=== PATIENT | female | born 1945 | race Caucasian/White ===

== ENCOUNTER → 2016-12-25 | Outpatient (CLI) | payer MEDICARE, OTHER ==
--- NOTE | 2016-12-25 08:13 | CT ---
EXAMINATION TYPE: CT sinus wo con DATE OF EXAM: 12/25/2016 COMPARISON: 06/10/2010 HISTORY: Headaches CT DLP: 599.8 mGycm CONTRAST: None The paranasal sinuses are examined in the axial plane at 2 mm thick sections. Reconstructed images i n the coronal plane were obtained. There is dental amalgam scatter artifact Minimal mucosal thickening or retention cyst is within the inferior right maxillary sinus. Partial se ptations are within the inferior maxillary sinuses bilaterally. Uncinectomies been performed on the r ight. The ethmoid air cells are clear. The sphenoid sinuses are clear. The frontal sinuses are wolfgang ar. The septum is evaluated. There is septal deviation to the left. The ostiomeatal units are patent. There is a left lolita bullosa. This exam is compared to 05/29/2010. On mucosal thickening within the right maxillary sinus appears st able. There is resolution of the previous ethmoid callosal thickening. Postsurgical changes are stabl e. IMPRESSIONS: 1. Minimal stable mucosal thickening within the inferior right maxillary sinus 2. Stable Postsurgical changes.
== END | disposition home or self-care (01) ==
LOC: RADCTMAIN 07:12
PROVIDERS: ATTEND Otolaryngology
DX: J34.89 Other specified disorders of nose and nasal sinuses (principal); R51 Headache; Z98.890 Other specified postprocedural states
CPT/HCPCS: 70486

== ENCOUNTER → 2017-10-14 | Outpatient (CLI) | payer MEDICARE, OTHER ==
[2017-10-13 14:33] VITALS: BMI 24.5
[2017-10-14 12:39] VITALS: BP 145/89; PULSE 59; RESP 16
--- NOTE | 2017-10-14 12:55 | P.HPIM ---
History of Present Illness H&P Date: 10/14/17 Chief Complaint: low back + LLE pain This is a 72-year-old patient referred by Dr. Kraus for chronic pain in low back with radiation to LLE. Patient has been taking only OTC medications for pain with some relief. Patient previously had lumbar RFA > 4 years ago but pain has begun to return. Patient denies adverse drug effects from medications. Patient also denies new-onset weakness, bowel/bladder incontinence , or any other signs or symptoms of cauda equina syndrome. There are no signs of acute intoxication, and no indications of medication diversion or overuse. Patient notes that pain worsens significantly with standing, walking, bending, and twisting and improves with sitting, heat and medication. Patient has used several types of medications for pain, including NSAIDS, OPIOIDS, TRAMADOL. Patient HAS NOT had surgery. Patient HAS had injections previously as noted above. Patient HAS NOT had physical therapy recently. In addition to above, 13-point review of systems is also negative for chest pain , shortness of breath, changes in vision, changes in hearing, new onset weakness , abdominal pain, diarrhea, extreme fatigue, malaise, fever, skin changes, homicidal or suicidal ideation, or bowel or bladder incontinence. Vital Signs: Reviewed in EMR Gen: WDWN, AAOx3, NAD HEENT: NCAT, EOMI, hearing grossly normal Pulm: resp unlabored Abd: soft, NT, ND Neck: supple, trachea midline ROM in flexion lumbar spine: reduced ROM in extension lumbar spine: reduced Lumbar paravertebral tenderness: + Facet loading: + bilateral, L > R SI joint tenderness: neg Thomas's test: + L > R Straight leg raise: neg Past Medical History Past Medical History: Hypertension Additional Past Medical History / Comment(s): STATES TAKING DOXAZOSIN BECAUSE SHE DOES NOT EMPTY HER BLADDER, HX OF UTI'S, MACULAR DEGENERATION LEFT EYE- RECEIVES INJECTIONS., LOWER BACK LEFT HIP AND LEFT LEG PAIN. , FREQUENT CONSTIPATION. History of Any Multi-Drug Resistant Organisms: None Reported Past Surgical History: Heart Catheterization, Hysterectomy Additional Past Surgical History / Comment(s): LEFT BUNIONECTOMY, LEFT HEEL SPUR., HEART CATH (? 15 YRS AGO)., PAIN CLINIC PROCEDURES. Past Anesthesia/Blood Transfusion Reactions: No Reported Reaction Past Psychological History: No Psychological Hx Reported Smoking Status: Never smoker Past Alcohol Use History: None Reported Past Drug Use History: None Reported - Past Family History Brother(s) Family Medical History: Cancer Additional Family Medical History / Comment(s): BONE CANCER Medications and Allergies Home Medications Medication Instructions Recorded Confirmed Type Aspirin [Adult Low Dose Aspirin EC] 81 mg PO DAILY 10/13/17 10/14/17 History Atenolol [Tenormin] 25 mg PO HS 10/13/17 10/14/17 History Cholecalciferol (Vitamin D3) 2,000 unit PO BID 10/13/17 10/14/17 History [Vitamin D3] Cranberry Fruit Extract [Cranberry] 500 mg PO BID 10/13/17 10/14/17 History Doxazosin [Cardura] 2 mg PO DAILY 10/13/17 10/14/17 History Ibuprofen [Motrin Ib] 400 mg PO DAILY PRN 10/13/17 10/14/17 History Naproxen Sodium [Aleve] 440 mg PO DAILY PRN 10/13/17 10/14/17 History Simvastatin [Zocor] 20 mg PO HS 10/13/17 10/14/17 History Vit C/E/Zn/Coppr/Lutein/Zeaxan 1 each PO BID 10/13/17 10/14/17 History [Preservision Areds 2 Softgel] Allergies Allergy/AdvReac Type Severity Reaction Status Date / Time cyclobenzaprine Allergy Unknown Rash/Hives Verified 10/14/17 12:25 [From Flexeril] Physical Exam Vitals: Vital Signs Pulse Resp BP 10/14/17 12:26 59 L 16 145/89 Results Comments: MRI lumbar spine demonstrates a new small left paracentral disc protrusion indenting the thecal sac at T12-L1 and L1-L2. There is a disc bulge asymmetric to the left at L2-L3 with progressing facet and ligamentum flavum hypertrophy. At the L4-L5 level there is a disc bulge with a new superimposed right foraminal disc protrusion. There is also progressing moderate right and mild left facet hypertrophy. There is also moderate facet hypertrophy at the L5-S1 level. Assessment and Plan (1) Spondylosis of lumbar region without myelopathy or radiculopathy Current Visit: Yes Status: Chronic Code(s): M47.816 - SPONDYLOSIS W/O MYELOPATHY OR RADICULOPATHY, LUMBAR REGION SNOMED Code(s): 75068794 (2) Chronic pain syndrome Current Visit: Yes Status: Chronic Code(s): G89.4 - CHRONIC PAIN SYNDROME SNOMED Code(s): 960497895 (3) Lumbar disc herniation Current Visit: Yes Status: Chronic Code(s): M51.26 - OTHER INTERVERTEBRAL DISC DISPLACEMENT, LUMBAR REGION SNOMED Code(s): 714197036 (4) Lumbar radiculitis Current Visit: Yes Status: Chronic Code(s): M54.16 - RADICULOPATHY, LUMBAR REGION SNOMED Code(s): 457385842 Plan: 1. Explanation: Opioid and psychological risk scores were reviewed. Diagnoses , prognoses, and multiple treatment options including but not limited to physical therapy, interventional therapies, adjuvant medical therapies, narcotic medication therapies, and surgery were discussed with the patient and all questions were answered to the patient's satisfaction. 2. Opioid agreement: no opioids prescribed today 3. Counseling: The patient was counseled extensively on BODY MASS INDEX, EXERCISE. Specifically, the patient was instructed regarding the importance of weight control, and exercise in the context of both chronic pain and overall health. 4. Procedures: left lumbar MBB #1 in series 5. Consultations: none 6. Investigations: none 7. Medications: none prescribed 8. Morphine equivalents per day prescribed: zero 9. Disposition: f/u for procedure as scheduled PQRS measures: 1-Patient's medications are documented in the chart. 2-Tobacco use is negative 3-Patient has not had a pneumococcal vaccine. 4-Advanced care planning discussed, patient unable to give. 5-Opioid contract NOT signed with the patient. 6-Pain positive, follow-up visit or procedure scheduled 7-Patient's blood pressure measured and documented, and patient will follow up with the primary care due to hypertension. 8-Patient's weight was measured, and body mass index BELOW the normal limits, and counseling was done. Patient instructed to follow up with PCP. 9-Patient WAS NOT identified as an unhealthy alcohol user. Time with Patient: Greater than 30
== END | disposition home or self-care (01) ==
LOC: PNWHC3 12:16
PROVIDERS: ATTEND Anesthesiology
DX: G89.4 Chronic pain syndrome (principal); M51.16 Intervertebral disc disorders with radiculopathy, lumbar region; I10 Essential (primary) hypertension; Z88.8 Allergy status to other drugs, medicaments and biological substances; Z79.899 Other long term (current) drug therapy; Z79.82 Long term (current) use of aspirin; Z79.1 Long term (current) use of non-steroidal anti-inflammatories (NSAID)
CPT/HCPCS: 99211

== ENCOUNTER 2017-10-26 05:51 | Day surgery (SDC) | payer MEDICARE, OTHER ==
[2017-10-26] MEDS ORDERED: LACTATED RINGERS 1,000 ML IV SCH (06:57)
[2017-10-26 07:05] VITALS: RESP 18; TEMP 98
[2017-10-26] MEDS ORDERED: IV FLUID CONTINUATION 1,000 ML IV ONE (07:33)
[2017-10-26 07:59] VITALS: BP 162/77; PULSE 65
--- NOTE | 2017-10-26 08:16 | P.PCN ---
Date of Procedure: 10/26/17 Surgeon: Darien Seaman Pathology: none sent Condition: stable Disposition: PACU Description of Procedure: PREOPERATIVE DIAGNOSIS: Lumbar spondylosis without myelopathy and facet arthropathy. POSTOPERATIVE DIAGNOSIS: Lumbar spondylosis without myelopathy and facet arthropathy. PROCEDURE DESCRIPTION: Patient presents for LEFT side only L3-L4, L4-L5 and L5- S1 diagnostic medial branch blocks under fluoroscopic guidance. The procedure is performed using fluoroscopic guidance during needle placement to assure proper position and maximize safety. ANESTHESIA: Local with 1% lidocaine; conscious sedation EBL: Minimal PROCEDURE INDICATION: Patient with lumbar facet arthropathy signs and symptoms, here for diagnostic medial branch block #1. Pt does not take any blood thinning medications. PROCEDURE DESCRIPTION: The patient was seen and identified in the preoperative area. Risks, benefits, complications, and alternatives were discussed with the patient (including but not limited to incomplete pain relief, bleeding, infection, nerve damage, and allergies to medications), the patient agreed to proceed with the procedure and signed the consent after all questions were answered. Patient was taken to the OR and time out was completed to verify proper patient, position, laterality of pain, and allergies. Pt was placed in the prone position and a pillow was placed under the abdomen to reduce lumbar lordosis. The lumbosacral area was prepped and draped in the usual sterile fashion. Using oblique fluoroscopy, the eye of the "Alexys dog" of left L4 vertebral body , which corresponds to the path of the medial branch originating from the level above, which is L3 in this case, was identified. Subsequently, a 22-gauge 3.5- inch spinal needle was inserted under fluoroscopic guidance toward the eye of the "Alexys dog" of the left L4 vertebral body, corresponding to the junction of the superior articular process and the transverse process of the pedicle of the same level. After needle tip confirmation on lateral view and after negative aspiration for CSF and blood and without paresthesias, 1 mL of a 3 ml solution of 0.5% preservative-free bupivacaine and 40 mg Kenalog was injected. Subsequently the needle was withdrawn intact and the same procedure was repeated for the left L4 and left L5 medial branches which together with right L3 medial branch correspond to the sensory innervation of the left L3-L4, L4-L5 , and L5-S1 facet joints. Needle was withdrawn intact after each injection. At the end of the procedure, the skin was cleansed and bandages were applied. COMPLICATIONS: None. DISPOSITION/PLAN: The patient taken to the recovery area after the procedure in a stable condition for observation. Patient was reexamined prior to discharge and there were no issues. Patient was discharged home, accompanied by an adult, after meeting discharged criteria. Discharge instructions were give to the patient by the staff. Patient was specifically instructed not to drive today and to rest for the rest of the day. Patient will schedule repeat left sided LMBB at next visit.
--- NOTE | 2017-10-26 09:14 | FL ---
EXAMINATION TYPE: FL guided pain mgmt statistic DATE OF EXAM: 10/26/2017 HISTORY: Flouroscopy time 6 seconds of fluoroscopy provided. IMPRESSION: 1. Fluoroscopy time.
== END 2017-10-26 08:14 | disposition home or self-care (01) ==
LOC: ORPAIN 05:51
PROVIDERS: ATTEND Anesthesiology
DX: G89.4 Chronic pain syndrome (principal); M47.816 Spondylosis without myelopathy or radiculopathy, lumbar region; M51.16 Intervertebral disc disorders with radiculopathy, lumbar region; I10 Essential (primary) hypertension; H35.30 Unspecified macular degeneration; Z79.82 Long term (current) use of aspirin; Z79.899 Other long term (current) drug therapy; Z88.8 Allergy status to other drugs, medicaments and biological substances; Z87.440 Personal history of urinary (tract) infections
CPT/HCPCS: 64493; 64494; 64495; J2250; J3301; J3010

== ENCOUNTER 2017-11-11 05:41 | Day surgery (SDC) | payer MEDICARE, OTHER ==
[2017-11-05 08:41] VITALS: BMI 24.5
[2017-11-11] MEDS ORDERED: LIDOCAINE 1% 20 ML VIAL (10MG/ML) FOR IV START INTRADERMA ONE (06:40)
[2017-11-11 06:47] VITALS: TEMP 97.9
[2017-11-11] MEDS ORDERED: LACTATED RINGERS 1,000 ML IV ONE (06:47)
[2017-11-11] MEDS ORDERED: LACTATED RINGERS 1,000 ML IV SCH (07:00)
--- NOTE | 2017-11-11 07:17 | P.PCN ---
Date of Procedure: 11/11/17 Surgeon: Ivan Rush Description of Procedure: PREOPERATIVE DIAGNOSIS : Lumbar spondylosis with Facet Arthropathy without myelopathy POSTOPERATIVE DIAGNOSIS: same PROCEDURE: Diagnostic lumbar medial branch block with fluoroscopy at left L4, left L5, left sacral ala ANESTHESIA: Local anesthetic; 2 mg of midazolam as limb Surgeon: Ivan Rush MD PROCEDURE INDICATION: This is a very pleasant 72-year-old woman who presents today for repeat of lumbar medial branch nerve block. She reports that she received very good relief from her previous procedure. She has had these injections done in the past and they have been helpful for her. She has also had a rhizotomy performed in the past and this was helpful. I discussed with her the potential of repeat rhizotomy in the future. PROCEDURE DESCRIPTION: the patient was seen and identified in the preop holding area , risks and benefits and possible complications of the procedure and alternative were discussed with the patient, and the patient agreed to proceed with the procedure and signed the consent. An IV was started and vital signs monitored during the procedure and fluoroscopy was used to maximize the benefit and accuracy of the needle placement, and sedation was given to decrease patient anxiety, patient was taken to the procedure room and placed in prone position vital signs monitored in the back prepped. Under strict sterile technique using a right oblique fluoroscopy ,the junction of the transverse process and the superior articulating process of the [] L3- 4 , L4- 5, and L5-S1 vertebra which corresponding to the fluoroscopy image of the eye of the Alexys dog on the block side for the medial branches and subsequently , after local infiltration of skin and subcutaneous tissues with lidocaine 1% one mL at each level ,then one 25-gauge Quincke-type needles was placed at the junction of the base of the transverse process and the superior articular process at the appropriate level, and the needle was advanced until the periosteum contacted, needle placement confirmed with AP oblique and lateral view and after appropriate needle placement confirmed, and after negative aspiration, 0.5 mL of Marcaine 0.5% mixed with 40 mg depomedrol in divided doses was injected at each level and the needle subsequently removed []. At the end of the procedure and the needles removed and a bandage applied after the skin was cleaned the cleaning solution patient taken to recovery room in stable condition and monitors in the recovery room for 20-30 minutes and discharged home in stable condition after discharge criteria met and patient will follow up with the pain clinic in 2-4 weeks to evaluate for radiofrequency ablation. EBL: Minimal COMPLICATION: None.
[2017-11-11] MEDS ORDERED: IV FLUID CONTINUATION 1,000 ML IV ONE (07:23)
[2017-11-11 07:27] VITALS: RESP 16
[2017-11-11 07:36] VITALS: BP 156/87; PULSE 58
--- NOTE | 2017-11-11 10:29 | FL ---
Fluoroscopy HISTORY: Pain 2 seconds fluoroscopy time supplied to the referring clinician. 1 intraoperative C-arm images docume nt the procedure. See dictated report from anesthesia.
== END 2017-11-11 07:52 | disposition home or self-care (01) ==
LOC: ORPAIN 05:41
PROVIDERS: ATTEND Pain Medicine Pain Medicine
DX: M47.816 Spondylosis without myelopathy or radiculopathy, lumbar region (principal); G89.4 Chronic pain syndrome; I10 Essential (primary) hypertension; R33.9 Retention of urine, unspecified; H35.30 Unspecified macular degeneration; Z88.8 Allergy status to other drugs, medicaments and biological substances; Z79.82 Long term (current) use of aspirin; Z79.899 Other long term (current) drug therapy; Z80.8 Family history of malignant neoplasm of other organs or systems
CPT/HCPCS: 64493; 64494; 64495; J2250; J1030

== ENCOUNTER → 2017-12-01 | Outpatient (CLI) | payer MEDICARE, OTHER ==
--- NOTE | 2017-12-01 16:01 | P.PN ---
Progress Note - Text Progress Note Date: 12/01/17 Chief Complaint: low back + LLE pain This is a 72-year-old patient referred by Dr. Kraus for chronic pain in low back with radiation to LLE. Patient is status post LEFT lumbar medial branch blocks with relief greater than 70% for greater than 24 hours. She has had lumbar radiofrequency ablations in the past on her left side, states that she's had at least 3 years of relief with each one. Patient is interested in getting a radio frequency ablation of her lumbar spine L3-L4, L4-L5, L5-S1 levels. I discussed with her the risks and benefits of lumbar radio frequency ablation. Patient wishes to proceed in that manner she had good relief from the medial branch blocks. Patient still on [id number] medication for pain. Patient also denies new-onset weakness, bowel/bladder incontinence, or any other signs or symptoms of cauda equina syndrome. There are no signs of acute intoxication, and no indications of medication diversion or overuse. Patient notes that pain worsens significantly with standing, walking, bending, and twisting and improves with sitting, heat and medication. Patient has used several types of medications for pain, including NSAIDS, OPIOIDS, TRAMADOL. Patient HAS NOT had surgery. Patient HAS had injections previously as noted above. Patient HAS NOT had physical therapy recently. In addition to above, 13-point review of systems is also negative for chest pain , shortness of breath, changes in vision, changes in hearing, new onset weakness , abdominal pain, diarrhea, extreme fatigue, malaise, fever, skin changes, homicidal or suicidal ideation, or bowel or bladder incontinence. Vital Signs: Reviewed in EMR Gen: WDWN, AAOx3, NAD HEENT: NCAT, EOMI, hearing grossly normal Pulm: resp unlabored Abd: soft, NT, ND Neck: supple, trachea midline ROM in flexion lumbar spine: reduced ROM in extension lumbar spine: reduced Lumbar paravertebral tenderness: + Facet loading: + bilateral, L > R SI joint tenderness: neg Thomas's test: + L > R Straight leg raise: neg Past Medical History Past Medical History: Hypertension Additional Past Medical History / Comment(s): STATES TAKING DOXAZOSIN BECAUSE SHE DOES NOT EMPTY HER BLADDER, HX OF UTI'S, MACULAR DEGENERATION LEFT EYE- RECEIVES INJECTIONS., LOWER BACK LEFT HIP AND LEFT LEG PAIN. , FREQUENT CONSTIPATION. History of Any Multi-Drug Resistant Organisms: None Reported Past Surgical History: Heart Catheterization, Hysterectomy Additional Past Surgical History / Comment(s): LEFT BUNIONECTOMY, LEFT HEEL SPUR., HEART CATH (? 15 YRS AGO)., PAIN CLINIC PROCEDURES. Past Anesthesia/Blood Transfusion Reactions: No Reported Reaction Past Psychological History: No Psychological Hx Reported Smoking Status: Never smoker Past Alcohol Use History: None Reported Past Drug Use History: None Reported - Past Family History Brother(s) Family Medical History: Cancer Additional Family Medical History / Comment(s): BONE CANCER Medications and Allergies Home Medications Medication Instructions Type Aspirin [Adult Low Dose Aspirin EC] 81 mg PO DAILY History Atenolol [Tenormin] 25 mg PO HS History Cholecalciferol (Vitamin D3) 2,000 unit PO BID History [Vitamin D3] Cranberry Fruit Extract [Cranberry] 500 mg PO BID History Doxazosin [Cardura] 2 mg PO DAILY History Ibuprofen [Motrin Ib] 400 mg PO DAILY PRN History Naproxen Sodium [Aleve] 440 mg PO DAILY PRN History Simvastatin [Zocor] 20 mg PO HS History Vit C/E/Zn/Coppr/Lutein/Zeaxan 1 each PO BID History [Preservision Areds 2 Softgel] Allergies Allergy/AdvReac Type Severity Reaction Status Date / Time cyclobenzaprine Allergy Unknown Rash/Hives Verified [From Flexeril] Physical Exam Vitals: Vital Signs Pulse Resp BP 10/14/17 12:26 59 L 16 145/89 Results Comments: MRI lumbar spine demonstrates a new small left paracentral disc protrusion indenting the thecal sac at T12-L1 and L1-L2. There is a disc bulge asymmetric to the left at L2-L3 with progressing facet and ligamentum flavum hypertrophy. At the L4-L5 level there is a disc bulge with a new superimposed right foraminal disc protrusion. There is also progressing moderate right and mild left facet hypertrophy. There is also moderate facet hypertrophy at the L5-S1 level. Assessment and Plan (1) Spondylosis of lumbar region without myelopathy or radiculopathy Current Visit: Yes Status: Chronic Code(s): M47.816 - SPONDYLOSIS W/O MYELOPATHY OR RADICULOPATHY, LUMBAR REGION SNOMED Code(s): 23110782 (2) Chronic pain syndrome Current Visit: Yes Status: Chronic Code(s): G89.4 - CHRONIC PAIN SYNDROME SNOMED Code(s): 753481601 (3) Lumbar disc herniation Current Visit: Yes Status: Chronic Code(s): M51.26 - OTHER INTERVERTEBRAL DISC DISPLACEMENT, LUMBAR REGION SNOMED Code(s): 535928820 (4) Lumbar radiculitis Current Visit: Yes Status: Chronic Code(s): M54.16 - RADICULOPATHY, LUMBAR REGION SNOMED Code(s): 065655443 Plan: 1. Explanation: Opioid and psychological risk scores were reviewed. Diagnoses , prognoses, and multiple treatment options including but not limited to physical therapy, interventional therapies, adjuvant medical therapies, narcotic medication therapies, and surgery were discussed with the patient and all questions were answered to the patient's satisfaction. 2. Opioid agreement: no opioids prescribed today 3. Counseling: The patient was counseled extensively on BODY MASS INDEX, EXERCISE. Specifically, the patient was instructed regarding the importance of weight control, and exercise in the context of both chronic pain and overall health. 4. Procedures: Lumbar radiofrequency ablation 5. Consultations: none 6. Investigations: none 7. Medications: none prescribed 8. Morphine equivalents per day prescribed: zero 9. Disposition: Schedule for LEFT lumbar radiofrequency ablation L3 L4, L4-L5 , L5-S1 levels PQRS measures: 1-Patient's medications are documented in the chart. 2-Tobacco use is negative 3-Patient has not had a pneumococcal vaccine. 4-Advanced care planning discussed, patient unable to give. 5-Opioid contract NOT signed with the patient. 6-Pain positive, follow-up visit or procedure scheduled 7-Patient's blood pressure measured and documented, and patient will follow up with the primary care due to hypertension. 8-Patient's weight was measured, and body mass index BELOW the normal limits, and counseling was done. Patient instructed to follow up with PCP. 9-Patient WAS NOT identified as an unhealthy alcohol user. Time with Patient: Greater than 30
[2017-12-01 16:02] VITALS: BP 145/96; PULSE 78; RESP 18
== END | disposition home or self-care (01) ==
LOC: PNWHC3 14:14
PROVIDERS: ATTEND Anesthesiology
DX: G89.4 Chronic pain syndrome (principal); M51.16 Intervertebral disc disorders with radiculopathy, lumbar region; M47.26 Other spondylosis with radiculopathy, lumbar region; I10 Essential (primary) hypertension; Z79.82 Long term (current) use of aspirin; Z79.1 Long term (current) use of non-steroidal anti-inflammatories (NSAID); Z79.899 Other long term (current) drug therapy; Z88.8 Allergy status to other drugs, medicaments and biological substances
CPT/HCPCS: 99211

== ENCOUNTER 2017-12-20 06:34 | Day surgery (SDC) | payer MEDICARE, OTHER ==
[2017-12-14 09:56] VITALS: BMI 24.5
[2017-12-20 07:15] VITALS: RESP 16; TEMP 98.1
[2017-12-20] MEDS ORDERED: LIDOCAINE 1% 20 ML VIAL (10MG/ML) FOR IV START INTRADERMA ONE (07:17)
[2017-12-20] MEDS ORDERED: LACTATED RINGERS 1,000 ML IV ONE (07:17)
--- NOTE | 2017-12-20 07:38 | P.PCN ---
Date of Procedure: 12/20/17 Description of Procedure: Description of Procedure: Procedure(s) Performed: PREOPERATIVE DIAGNOSIS: 1. Lumbar Spondylosis with Facet Arthropathy without myelopathy. 2-. Lumber degenerative disc disease POSTOPERATIVE DIAGNOSIS: 1. Lumbar Spondylosis with Facet Arthropathy without myelopathy. 2-. Lumber degenerative disc disease PROCEDURES: Left Radiofrequency thermocoagulation, L3-L4, L4-L5, and L5-S1 medial branch, with fluoroscopic guidance SURGEON: Jimmy Marquez M.D. ANESTHESIA: Moderate sedation with intravenous versed 2 mg and fentaneyl 100 mcg and local infiltration with lidocaine 1% 4 ml EBL: Minimal PROCEDURE INDICATION: The patient with low back pain secondary to lumbar facet arthropathy who had more than 50% relief of her pain with previous diagnostic lumbar medial branch block with bupivacaine. PROCEDURE DESCRIPTION / TECHNIQUE: The patient was seen and identified in the preoperative area. Risks, benefits, complications, including but not limited to risk of infection ,bleeding , allergic reactions to the medications and no complete pain releife , and alternatives were discussed with the patient, the patient agreed to proceed with the procedure and signed the consent. IV was started. Vital signs remained stable throughout the procedure. Patient was taken to the OR and time out was completed. The patient was placed in the prone position on the procedure table. The lumber area was prepped and draped in the usual sterile fashion. . Vital signs were closely monitored during the procedure .IV sedation was used during the procedure to decrease patients anxiety. Using AP and then oblique fluoroscopy, the ``eye of the Alexys dog corresponding to the connection between the superior and transverse articular processes of Left L3-L4, L4-L5, and L5-S1 were identified, marked, and localized with 1% lidocaine. Subsequently, a 18 [id number] radiofrequency cannula with a 10-mm active tip was advanced guided by fluoroscopy to each of the ``eyes of the Alexys dog at left L3-L4, L4-L5, and L5-S1. Each site then underwent sensory testing at 50 Hz and 0 to 1 volt and motor testing at 2.5 Hz and 0 to 3 volt with local stimulation, but no radicular symptoms down the legs. Thereafter the left L3-L4, L4-L5, and L5-S1 sites underwent radiofrequency thermocoagulation at 80 degrees celsius for 90 seconds after injecting 0.5 ml of PF lidocaine 1%. then After the thermocoagulation done , 1 ml of the block solution containing Kenalog 40 mg and 4 ml of marain 0.5% was injected at the Left L3-4 , L4-5 , and L5-S1, levels after negative aspiration of CSF and blood and with no paresthesias. Cannulas were retracted while injecting lidocaine 1% until the needle is out.. At the end of the procedure, the skin was cleansed and bandages were applied. COMPLICATIONS: No acute complications. DISPOSITION / PLANS: The patient was placed in a supine position and transferred to the recovery area in a stable condition for observation and was discharged from the recovery room after meeting discharge criteria. Home discharge instructions given to the patient by the staff. The patient was reexamined prior to discharge. Patient will return to clinic in 4-8 weeks.
[2017-12-20] MEDS ORDERED: LACTATED RINGERS 1,000 ML IV SCH (07:45)
[2017-12-20] MEDS ORDERED: IV FLUID CONTINUATION 1,000 ML IV ONE ×2 (08:41)
--- NOTE | 2017-12-20 08:47 | FL ---
EXAMINATION TYPE: FL guided pain mgmt statistic DATE OF EXAM: 12/20/2017 HISTORY: Flouroscopy time 38 seconds of fluoroscopy provided. IMPRESSION: 1. Fluoroscopy time.
[2017-12-20 08:56] VITALS: BP 160/91; PULSE 65
== END 2017-12-20 09:18 | disposition home or self-care (01) ==
LOC: ORPAIN 06:34
PROVIDERS: ATTEND Anesthesiology
DX: G89.4 Chronic pain syndrome (principal); M47.816 Spondylosis without myelopathy or radiculopathy, lumbar region; M51.16 Intervertebral disc disorders with radiculopathy, lumbar region; I10 Essential (primary) hypertension; N32.89 Other specified disorders of bladder; H35.30 Unspecified macular degeneration; Z79.82 Long term (current) use of aspirin; Z79.899 Other long term (current) drug therapy; Z09 Encounter for follow-up examination after completed treatment for conditions other than malignant neoplasm; Z88.8 Allergy status to other drugs, medicaments and biological substances
CPT/HCPCS: 64635; 64636; J2250; J3301; J3010; 99152

== ENCOUNTER 2018-02-04 07:53 | Day surgery (SDC) | payer MEDICARE, OTHER ==
[2018-02-01 16:01] VITALS: BMI 24.1
[~2018-02-04 07:53] MED LIST: LACTATED RINGERS 1,000 ML IV SCH; LIDOCAINE 1% 20 ML VIAL (10MG/ML) FOR IV START INTRADERMA PRN
[2018-02-04 08:59] VITALS: TEMP 98
[2018-02-04 09:14] LABS: Glucose,Whole Blood 78 mg/dL (75-99)
[2018-02-04] MEDS ORDERED: PROPOFOL 10 MG/ML 20 ML VIAL IV ONE (09:26)
--- NOTE | 2018-02-04 09:52 | P.PCN ---
Date of Procedure: 02/04/18 Procedure(s) Performed: BRIEF HISTORY: Patient is a 72-year-old pleasant 8 female, scheduled for an elective colonoscopy as a part of OR screening for colorectal neoplasia. OCEDURE PERFORMED: Colonoscopy with snare polypectomy PREOPERATIVE DIAGNOSIS: screening for colon cancer IV sedation per Anesthesia. PROCEDURE: After informed consent was obtained, the patient, was brought into the endoscopy unit. IV sedation was administered by Anesthesia under continuous monitoring. Digital rectal examination was normal. Initially the Olympus CF- 160 flexible video colonoscope was then inserted in the rectum, gradually advanced into the cecum without any difficulty. Careful examination was performed as the scope was gradually being withdrawn. Ileocecal valve and the appendiceal orifice were visualized and appeared normal. Prep was excellent. was a 1 cm flat cecal polyp that was removed by snare polypectomy. Mucosa of the cecum, ascending colon, transverse colon, descending colon, sigmoid colon, and rectum appeared normal. Sigmoid Diverticulosis Seen. Retroflexion was performed in the rectum and no lesions were seen. The patient tolerated the procedure well. IMPRESSION: 1 cm flat cecal polyp status post polypectomy Scattered sigmoid diverticulosis RECOMMENDATIONS: Findings of this examination were discussed with the patient as well as a family. She was advised to follow with the biopsy results. If the biopsy shows adenoma she can have a repeat colonoscopy in 5 years
[2018-02-04 09:55] VITALS: RESP 16
[2018-02-04 10:26] VITALS: BP 100/68; PULSE 60
== END 2018-02-04 10:44 | disposition home or self-care (01) ==
LOC: ORWHC2ENDO 07:53
PROVIDERS: ATTEND Internal Medicine Gastroenterology
DX: Z12.11 Encounter for screening for malignant neoplasm of colon (principal); K63.5 Polyp of colon; K57.30 Diverticulosis of large intestine without perforation or abscess without bleeding; Z86.010 Personal history of colon polyps; I10 Essential (primary) hypertension; E78.5 Hyperlipidemia, unspecified; N39.0 Urinary tract infection, site not specified; H35.30 Unspecified macular degeneration; Z79.82 Long term (current) use of aspirin; Z79.52 Long term (current) use of systemic steroids; Z79.1 Long term (current) use of non-steroidal anti-inflammatories (NSAID); Z79.899 Other long term (current) drug therapy; Z88.8 Allergy status to other drugs, medicaments and biological substances; Z79.2 Long term (current) use of antibiotics
CPT/HCPCS: 88305; 45385; J2704

== ENCOUNTER → 2018-02-10 | Outpatient (CLI) | payer MEDICARE, OTHER ==
[2018-02-10 13:11] VITALS: BP 128/84; PULSE 77; RESP 16
--- NOTE | 2018-02-10 13:26 | P.PN ---
Subjective Progress Note Date: 02/10/18 Principal diagnosis: Lumbar spondylosis without myelopathy This is a pleasant 72-year-old female with history of chronic lower back pain due to lumbar spondylosis without myelopathy. The patient had lumbar bilateral medial branch RFA recently and her pain is tolerable at this point. Previously she had prolonged period of pain relief after her RFA. The patient denies any bowel or bladder dysfunction or any weakness in the lower extremities she also denies any numbness or tingling in the lower extremities. By physical exam she is alert oriented 3 in no apparent distress She has normal and symmetrical muscle strength in the lower extremities. At this point we will see the patient on an as-needed basis. Objective - Vital Signs Vital signs: Vital Signs Temp Pulse 77 02/10/18 13:05 Resp 16 02/10/18 13:05 BP 128/84 02/10/18 13:05 Pulse Ox 99 02/10/18 13:05 Intake & Output 02/09/18 02/10/18 02/10/18 18:59 06:59 18:59 Weight 59.874 kg
== END | disposition home or self-care (01) ==
LOC: PNWHC3 12:54
PROVIDERS: ATTEND Anesthesiology
DX: G89.29 Other chronic pain (principal); M47.816 Spondylosis without myelopathy or radiculopathy, lumbar region; Z98.890 Other specified postprocedural states
CPT/HCPCS: 99211

== ENCOUNTER → 2018-02-25 | Outpatient (CLI) | payer MEDICARE, OTHER ==
--- NOTE | 2018-02-28 09:11 | MM ---
Reason for exam: screening (asymptomatic). Last mammogram was performed 2 years ago. History: Patient history of other cancer. Physical Findings: A clinical breast exam by your physician is recommended on an annual basis and results should be correlated with mammographic findings. MG 3D Screening Mammo W/Cad Bilateral CC and MLO view(s) were taken. Prior study comparison: February 17, 2016, bilateral MG 3d screening mammo w/cad. February 27, 2015, bilateral MG 3d work up w/cad IAN. The breast tissue is heterogeneously dense. This may lower the sensitivity of mammography. There is no discrete abnormality. No significant changes when compared with prior studies. ASSESSMENT: Negative, BI-RAD 1 RECOMMENDATION: Routine screening mammogram of both breasts in 1 year.
== END ==
LOC: RADMAMWWP 11:57
PROVIDERS: ATTEND Obstetrics & Gynecology
DX: Z12.31 Encounter for screening mammogram for malignant neoplasm of breast (principal)
CPT/HCPCS: 77063; 77067

== ENCOUNTER → 2018-06-03 | Outpatient (CLI) | payer MEDICARE, OTHER ==
--- NOTE | 2018-06-06 07:39 | BD ---
EXAMINATION TYPE: Axial Bone Density DATE OF EXAM: 06/03/2018 COMPARISON: 02.17.2016 CLINICAL HISTORY: 72 YR OLD FEMALE...ICD-10 CODE: M89.9 KNOWN OSTEOPENIA Height: 59.5 Weight: 138 FRAX RISK QUESTIONS: NOTHING TO RISK FACTORS HISTORY OF: Postmenopausal woman: YES IN HER 50s Lost more than 2 inches in height since high school: YES Frequent falls: ELDERLY MEDICATIONS: Additional Medications: BP MEDS, VIT D3, STATIN FOR CHOLESTEROL Additional History: HYPERTENSION, LOW VIT D, CHOLESTEROL EXAM MEASUREMENTS: Bone mineral densitometry was performed using the Koemei System. Bone mineral density as measured about the Lumbar spine is: ----- L1-L4(G/cm2): 1.185 T Score Values are as follows: ----- L1: -0.4 ----- L2: -0.5 ----- L3: 0.7 ----- L4: 0.2 ----- L1-L4: 0.0 Bone mineral density has: Increased 5.9% SINCE 02.17.2016 STUDY Bone mineral density about the R hip (g/cm2): 0.802 Bone mineral density about the L hip (g/cm2): 0.860 T Score values are as follows: -----R Neck: -1.9 -----L Neck: -1.8 -----R Total: -1.6 -----L Total: -1.2 Bone mineral density has: Decreased -4.9%SINCE FRAX%s: THERE IS A 12.8% CHANCE FOR A MAJOR OSTEOPOROTIC FX AND A 3.2% FOR HIP.....PROBABILITY OF FX IN 10 YRS TIME IMPRESSION: Osteopenia about the bilateral femora. NOTE: T-SCORE=SD OF THE YOUNG ADULT MEAN.
== END | disposition home or self-care (01) ==
LOC: RADBDWWP 12:09
PROVIDERS: ATTEND Obstetrics & Gynecology
DX: M85.851 Other specified disorders of bone density and structure, right thigh (principal); M85.852 Other specified disorders of bone density and structure, left thigh
CPT/HCPCS: 77080

== ENCOUNTER → 2019-01-17 | Outpatient (CLI) | payer MEDICARE, OTHER ==
--- NOTE | 2019-01-17 13:12 | US ---
EXAMINATION TYPE: US gallbladder DATE OF EXAM: 01/17/2019 COMPARISON: NONE CLINICAL HISTORY: R10.13 Epigastric pain,K80.20 Gallstones. RUQ pain x 2 months EXAM MEASUREMENTS: Liver Length: 13.9 cm Gallbladder Wall: 0.2 cm CBD: 0.3 cm Right Kidney: 9.1 x 3.9 x 4.9 cm Pancreas: visualized portions wnl, limited by overlying midline bowel gas Liver: mildly heterogeneous, 2.1 x 2.0 x 1.9cm hyperechoic lesion right lobe Gallbladder: wnl Evidence for sonographic Edwards's sign: no CBD: wnl Right Kidney: Prominent renal pelvis may be related to extrarenal pelvis There is no ascites. IMPRESSION: Limited exam. Hyperechoic focus within the right lobe of the liver is indeterminate. Diff erential diagnostic considerations include hemangioma, consider CT with dynamic contrast administrati on versus MRI for better evaluation.
== END | disposition home or self-care (01) ==
LOC: RADUSMAIN 08:59
PROVIDERS: ATTEND Surgery Plastic and Reconstructive Surgery
DX: R10.13 Epigastric pain (principal); K80.20 Calculus of gallbladder without cholecystitis without obstruction
CPT/HCPCS: 76705

== ENCOUNTER 2019-01-18 10:10 | Day surgery (SDC) | payer MEDICARE, OTHER ==
[2019-01-16 15:23] VITALS: BMI 25.1
--- NOTE | 2019-01-18 07:55 | P.GSHP ---
History of Present Illness H&P Date: 01/18/19 CHIEF COMPLAINT: GERD HISTORY OF PRESENT ILLNESS: The patient is a 73-year-old female who presents reports gastroesophageal reflux disease. Upper endoscopy was offered for further evaluation and management. PAST MEDICAL HISTORY: Please see list. PAST SURGICAL HISTORY: Please see list. MEDICATIONS: Please see list. ALLERGIES: Please see list. SOCIAL HISTORY: No illicit drug use FAMILY HISTORY: No reports of Crohn disease or ulcerative colitis. REVIEW OF ORGAN SYSTEMS: CONSTITUTIONAL: No reports of fevers or chills. GI: Denies any blood in stools or constipation. PHYSICAL EXAM: VITAL SIGNS: Stable GENERAL: Well-developed and pleasant in no acute distress. HEENT: No scleral icterus. Extraocular movements grossly intact. Moist buccal mucosa. NECK: Supple without lymphadenopathy. CHEST: Unlabored respirations. Equal bilateral excursions. CARDIOVASCULAR: Regular rate and rhythm. Distal 2+ pulses. ABDOMEN: Soft, nondistended. MUSCULOSKELETAL: No clubbing, cyanosis, or edema. ASSESSMENT: 1. Gastroesophageal reflux disease PLAN: 1. Recommend proceeding with an upper endoscopy Past Medical History Past Medical History: Eye Disorder, GERD/Reflux, Hyperlipidemia, Hypertension Additional Past Medical History / Comment(s): STATES TAKING DOXAZOSIN BECAUSE SHE DOES NOT EMPTY HER BLADDER, HX OF UTI'S, MACULAR DEGENERATION LEFT EYE- RECEIVES INJECTIONS., LOWER BACK LEFT HIP AND LEFT LEG PAIN. , FREQUENT CONSTIPATION. History of Any Multi-Drug Resistant Organisms: None Reported Past Surgical History: Heart Catheterization, Hysterectomy, Orthopedic Surgery Additional Past Surgical History / Comment(s): LEFT BUNIONECTOMY, LEFT HEEL SPUR., HEART CATH (? 15 YRS AGO)., PAIN CLINIC PROCEDURES., COLONOSCOPY, EGD Past Anesthesia/Blood Transfusion Reactions: No Reported Reaction Smoking Status: Never smoker - Past Family History Brother(s) Family Medical History: Cancer Additional Family Medical History / Comment(s): BONE CANCER Medications and Allergies Home Medications Medication Instructions Recorded Confirmed Type Aspirin [Adult Low Dose Aspirin EC] 81 mg PO DAILY 10/13/17 01/16/19 History Atenolol [Tenormin] 25 mg PO HS 10/13/17 01/16/19 History Cholecalciferol (Vitamin D3) 2,000 unit PO BID 10/13/17 01/16/19 History [Vitamin D3] Doxazosin [Cardura] 2 mg PO DAILY 10/13/17 01/16/19 History Simvastatin [Zocor] 20 mg PO HS 10/13/17 01/16/19 History Furosemide [Lasix] 20 mg PO DAILY 01/16/19 01/16/19 History Lisinopril [Prinivil] 10 mg PO HS 01/16/19 01/16/19 History Montelukast [Singulair] 10 mg PO DAILY 01/16/19 01/16/19 History Vit C/E/Zn/Coppr/Lutein/Zeaxan 1 each PO BID 01/16/19 01/16/19 History [Preservision Areds 2 Softgel] Allergies Allergy/AdvReac Type Severity Reaction Status Date / Time cyclobenzaprine Allergy Unknown Rash/Hives Verified 01/16/19 15:08 [From Flexeril]
[2019-01-18 10:56] VITALS: TEMP 97.9
[2019-01-18] MEDS ORDERED: GLYCOPYRROLATE 0.2 MG/ML 2 ML VIAL ONE (11:27)
[2019-01-18] MEDS ORDERED: PROPOFOL 10 MG/ML 20 ML VIAL IV ONE (11:27)
[2019-01-18] MEDS ORDERED: LIDOCAINE 1% INJ 10MG/ML (20 ML MDV) ONE (11:27)
--- NOTE | 2019-01-18 11:46 | P.PCN ---
Date of Procedure: 01/18/19 Description of Procedure: PREOPERATIVE DIAGNOSIS: Gastroesophageal reflux disease. Hiatal hernia POSTOPERATIVE DIAGNOSIS: Gastritis. Gastroesophageal reflux disease. Diaphragmatic hiatal hernia, paraesophageal type III OPERATION: Esophagogastroduodenoscopy with biopsies along antrum. SURGEON: Mary Mead MD ANESTHESIA: MAC. INDICATIONS: The patient is a 73-year-old female who presents with a history of reflux disease. Benefits and risks of the procedure were described. Informed consent was obtained. DESCRIPTION: The patient was brought into the endoscopy suite and laid in the left lateral decubitus position. An Olympus gastroscope was passed along the posterior oropharynx down to the distal esophagus where the squamocolumnar junction was encountered at 27 cm from the incisors. The stomach was entered and no bile reflux was found. Additional findings are listed below. Biopsies with cold forceps were obtained of the antrum. The first through third portion of the duodenum was examined and unremarkable. Retroflexion of the scope confirmed Hill grade 4 lower esophageal valve. The squamocolumnar junction demonstrated LA grade A erosive esophagitis. The stomach was desufflated. The patient tolerated the procedure well. FINDINGS: Squamocolumnar junction 27 cm from the incisors. Diaphragmatic hiatus at 37 cm. Hiatal hernia, 10 cm Hill grade 4 lower esophageal valve. LA grade A erosive esophagitis. No active duodenitis. Chronic gastritis without recent bleed RECOMMENDATIONS: Upper endoscopy as needed. Plan - Discharge Summary Discharge Rx Participant: No New Discharge Prescriptions: No Action Atenolol [Tenormin] 25 mg PO HS Simvastatin [Zocor] 20 mg PO HS Doxazosin [Cardura] 2 mg PO DAILY Cholecalciferol (Vitamin D3) [Vitamin D3] 2,000 unit PO BID Aspirin [Adult Low Dose Aspirin EC] 81 mg PO DAILY Montelukast [Singulair] 10 mg PO DAILY Lisinopril [Prinivil] 10 mg PO HS Furosemide [Lasix] 20 mg PO DAILY Vit C/E/Zn/Coppr/Lutein/Zeaxan [Preservision Areds 2 Softgel] 1 each PO BID Discharge Medication List Aspirin [Adult Low Dose Aspirin EC] 81 mg PO DAILY 10/13/17 [History] Atenolol [Tenormin] 25 mg PO HS 10/13/17 [History] Cholecalciferol (Vitamin D3) [Vitamin D3] 2,000 unit PO BID 10/13/17 [History] Doxazosin [Cardura] 2 mg PO DAILY 10/13/17 [History] Simvastatin [Zocor] 20 mg PO HS 10/13/17 [History] Furosemide [Lasix] 20 mg PO DAILY 01/16/19 [History] Lisinopril [Prinivil] 10 mg PO HS 01/16/19 [History] Montelukast [Singulair] 10 mg PO DAILY 01/16/19 [History] Vit C/E/Zn/Coppr/Lutein/Zeaxan [Preservision Areds 2 Softgel] 1 each PO BID 01/16/19 [History]
[2019-01-18 11:50] VITALS: RESP 16
[2019-01-18 12:20] VITALS: BP 154/89; PULSE 58
== END 2019-01-18 12:49 | disposition home or self-care (01) ==
LOC: ORWHC2ENDO 10:10
PROVIDERS: ATTEND Surgery Plastic and Reconstructive Surgery
DX: K29.50 Unspecified chronic gastritis without bleeding (principal); K22.10 Ulcer of esophagus without bleeding; K44.9 Diaphragmatic hernia without obstruction or gangrene; K21.9 Gastro-esophageal reflux disease without esophagitis; E78.5 Hyperlipidemia, unspecified; I10 Essential (primary) hypertension; H35.30 Unspecified macular degeneration; Z90.710 Acquired absence of both cervix and uterus; Z80.8 Family history of malignant neoplasm of other organs or systems; Z79.82 Long term (current) use of aspirin; Z79.899 Other long term (current) drug therapy; Z88.8 Allergy status to other drugs, medicaments and biological substances
CPT/HCPCS: 88305; 43239; J2001; J2704

== ENCOUNTER → 2019-01-20 | Outpatient (CLI) | payer MEDICARE, OTHER ==
[2019-01-20 13:44] LABS: African American GFR (CKD) >90 (>60 ml/min/1.73 sqM); Blood Urea Nitrogen 13 mg/dL (7-17)
--- NOTE | 2019-01-20 15:22 | CT ---
EXAMINATION TYPE: CT abdomen pelvis w con DATE OF EXAM: 01/20/2019 HISTORY: hiatal hernia and epigastric pain. CT DLP: 450.8mGycm Automated Exposure Control for Dose Reduction was Utilized. CONTRAST: CT scan of the abdomen and pelvis is performed with oral and with IV Contrast, patient injected with 100 mL of Isovue 300. COMPARISON: Gallbladder ultrasound 3 days earlier. FINDINGS: LUNG BASES: Anterior right basilar scarring just above diaphragm.. LIVER/GB: Central 1.7 cm hypodense lesion liver axial image 14 with peripheral nodular enhancement an d centripetal filling consistent with small hemangioma.. PANCREAS: No significant abnormality is seen. SPLEEN: No significant abnormality is seen. ADRENALS: No significant abnormality is seen. KIDNEYS: Symmetric cortical medullary uptake and excretion from both kidneys without hydronephrosis s een bilaterally. Mild concentric wall thickening of bladder is thought present. BOWEL: There is fairly moderate to borderline large sized hiatal hernia with abnormal twisting. Contrast reaches the level of the mid transverse colon. No suspicious small or large bowel dilatation . Mild wall thickening in the left and sigmoid colon is present products of poor distention extending into rectum. Mild colitis felt less likely but not excluded. UTERUS/ADNEXA: Uterus is surgically absent. LYMPH NODES: No greater than 1cm abdominal or pelvic lymph nodes are appreciated. OSSEOUS STRUCTURES: Moderate to severe disc space narrowing L5-S1 level with vacuum disc phenomenon. [id number] disc space narrowing with vacuum disc phenomenon L4-L5 level. Moderate disc space na rrowing with vacuum disc phenomenon L2-L3 level. OTHER: Mild calcified plaque of the aorta extends into branch vessels. IMPRESSION: Confirmation of moderate to borderline large size presumed fixed hiatal hernia with abnor mal twisting. Possible acute cystitis, correlate clinically. Confirmation of liver lesion consistent with benign hemangioma noted.
== END | disposition home or self-care (01) ==
LOC: RADCTMAIN 13:05
PROVIDERS: ATTEND Surgery Plastic and Reconstructive Surgery
DX: K76.9 Liver disease, unspecified (principal); K80.20 Calculus of gallbladder without cholecystitis without obstruction; R91.8 Other nonspecific abnormal finding of lung field; J98.59 Other diseases of mediastinum, not elsewhere classified; R10.13 Epigastric pain
CPT/HCPCS: 82565; 84520; 74177; 36415; Q9967

== ENCOUNTER → 2019-03-14 | Outpatient (CLI) | payer MEDICARE, OTHER ==
--- NOTE | 2019-03-16 09:58 | MM ---
Reason for exam: screening (asymptomatic). Last mammogram was performed 1 year and 1 month ago. History: Patient is postmenopausal and history of other cancer. Physical Findings: A clinical breast exam by your physician is recommended on an annual basis and results should be correlated with mammographic findings. MG 3D Screening Mammo W/Cad Bilateral CC and MLO view(s) were taken. Prior study comparison: February 25, 2018, bilateral MG 3d screening mammo w/cad. February 17, 2016, bilateral MG 3d screening mammo w/cad. The breast tissue is heterogeneously dense. This may lower the sensitivity of mammography. There is no discrete abnormality. No significant changes when compared with prior studies. ASSESSMENT: Negative, BI-RAD 1 RECOMMENDATION: Routine screening mammogram of both breasts in 1 year.
== END | disposition home or self-care (01) ==
LOC: RADMAMWWP 09:47
PROVIDERS: ATTEND Obstetrics & Gynecology
DX: Z12.31 Encounter for screening mammogram for malignant neoplasm of breast (principal)
CPT/HCPCS: 77063; 77067

== ENCOUNTER → 2019-04-11 | Outpatient (CLI) | payer MEDICARE, OTHER ==
[2019-04-11 12:15] LABS: HCT 35.8 % (34.0-46.0); MCH 32.3 pg (25.0-35.0); MCHC 33.6 g/dL (31.0-37.0); MCV 96.1 fL (80.0-100.0); Mean Platelet Volume 6.6; Platelet Count 189 k/uL (150-450); RBC 3.73 m/uL (3.80-5.40); RDW 12.2 % (11.5-15.5); WBC 5.9 k/uL (3.8-10.6)
== END | disposition home or self-care (01) ==
LOC: LABPAT 11:00
PROVIDERS: ATTEND Anesthesiology
DX: Z01.812 Encounter for preprocedural laboratory examination (principal); K44.9 Diaphragmatic hernia without obstruction or gangrene; Z79.899 Other long term (current) drug therapy
CPT/HCPCS: 36415; 84132; 85027

== ENCOUNTER 2019-04-14 12:39 | Inpatient (IN) | payer MEDICARE, OTHER ==
--- NOTE | 2019-04-13 21:25 | P.GSHP ---
History of Present Illness H&P Date: 04/14/19 CHIEF COMPLAINT: Paraesophageal hiatal hernia with gastroesophageal reflux disease. HISTORY OF PRESENT ILLNESS: The patient is a 73-year-old female who presents with paraesophageal hiatal hernia. She has completed an esophageal manometry including upper endoscopy workup. Now she presents for surgical intervention. PAST MEDICAL HISTORY: Please see list. PAST SURGICAL HISTORY: Please see list. MEDICATIONS: Please see list. ALLERGIES: Please see list. SOCIAL HISTORY: No illicit drug use FAMILY HISTORY: No reports of Crohn disease or ulcerative colitis. REVIEW OF ORGAN SYSTEMS: CONSTITUTIONAL: No reports of fevers or chills. GI: Denies any blood in stools or constipation. PHYSICAL EXAM: VITAL SIGNS: Stable GENERAL: Well-developed pleasant and in no acute distress. HEENT: No scleral icterus. Extraocular movements grossly intact. Moist buccal mucosa. NECK: Supple without lymphadenopathy. CHEST: Unlabored respirations. Equal bilateral excursions. CARDIOVASCULAR: Regular rate and rhythm. Distal 2+ pulses. ABDOMEN: Soft, nondistended. No peritoneal signs. MUSCULOSKELETAL: No clubbing, cyanosis, or edema. SKIN: Well-perfused. Good skin turgor. MANOMETRY: Shows no evidence of achalasia or scleroderma. ASSESSMENT: 1. Diaphragmatic paraesophageal hiatal hernia with severe gastroesophageal reflux disease. 2. Ineffective esophageal motility. 3. Short and weak lower esophageal sphincter. PLAN: 1. Recommend proceeding with a robotic paraesophageal hiatal hernia with possible mesh. 2. Benefits and risks of surgical intervention was discussed including possibility of open technique. 3. Inpatient hospitalization recommended of 2 nights 4. DVT prophylaxis. 5. Antibiotic prophylaxis. 6. She has also completed a very low caloric high-protein diet to address underlying hepatomegaly. Past Medical History Past Medical History: Eye Disorder, GERD/Reflux, Hyperlipidemia, Hypertension Additional Past Medical History / Comment(s): Hx STATES "DOES NOT EMPTY HER BLADDER", UTI'S, MACULAR DEGENERATION LEFT EYE- RECEIVES INJECTIONS., LOWER BACK LEFT HIP AND LEFT LEG PAIN. , FREQUENT CONSTIPATION,steroid injection Mar 2019 History of Any Multi-Drug Resistant Organisms: None Reported Past Surgical History: Heart Catheterization, Hysterectomy, Orthopedic Surgery Additional Past Surgical History / Comment(s): LEFT BUNIONECTOMY, LEFT HEEL SPUR., HEART CATH (? 15 YRS AGO)., PAIN CLINIC PROCEDURES., COLONOSCOPY, EGD,partial hyst Past Anesthesia/Blood Transfusion Reactions: No Reported Reaction Additional Past Anesthesia/Blood Transfusion Reaction / Comment(s): no hx blood transfusion Smoking Status: Never smoker - Past Family History Brother(s) Family Medical History: Cancer Additional Family Medical History / Comment(s): BONE CANCER Medications and Allergies Home Medications Medication Instructions Recorded Confirmed Type Aspirin [Adult Low Dose Aspirin EC] 81 mg PO DAILY 10/13/17 04/11/19 History Atenolol [Tenormin] 25 mg PO HS 10/13/17 04/11/19 History Cholecalciferol (Vitamin D3) 2,000 unit PO BID 10/13/17 04/11/19 History [Vitamin D3] Doxazosin [Cardura] 2 mg PO QAM 10/13/17 04/11/19 History Simvastatin [Zocor] 20 mg PO HS 10/13/17 04/11/19 History Furosemide [Lasix] 20 mg PO DAILY 01/16/19 04/11/19 History Lisinopril [Prinivil] 10 mg PO QAM 01/16/19 04/11/19 History Montelukast [Singulair] 10 mg PO DAILY PRN 01/16/19 04/11/19 History Vit C/E/Zn/Coppr/Lutein/Zeaxan 1 each PO BID 01/16/19 04/11/19 History [Preservision Areds 2 Softgel] Cranberry Fruit Extract [Cranberry] 500 mg PO DAILY 04/11/19 04/11/19 History Docusate [Colace] 100 mg PO BID 04/11/19 04/11/19 History Magnesium Hydroxide [Milk of 400 mg PO DAILY PRN 04/11/19 04/11/19 History Magnesia] Allergies Allergy/AdvReac Type Severity Reaction Status Date / Time cyclobenzaprine Allergy Unknown Rash/Hives Verified 04/11/19 08:47 [From Flexeril]
[~2019-04-14 12:39] MED LIST changes: +ACETAMINOPHEN TAB 500 MG TAB PO STA; +DEXAMETHASONE SOD PHOSPHATE 10 MG/ML 1 ML VIAL IV ONE; +GABAPENTIN 300 MG CAP PO STA; +HEPARIN SODIUM,PORCINE 5,000 UNIT/ML 1 ML VIAL SQ ONE; +HYDROmorphone 0.5 MG/0.5 ML SYRINGE IVP PRN; +MIDAZOLAM 2 MG/2 ML VIAL IV PRN; +ONDANSETRON 4 MG/2 ML VIAL IVP ONE; +SCOPOLAMINE 1.5MG/72HR PATCH TRANSDERM ONE
[2019-04-14 13:20] LABS: Glucose,Whole Blood 118 mg/dL (75-99)
[2019-04-14] MEDS ORDERED: fentaNYL (PF) 50 MCG/ML 2 ML AMP ONE (16:21)
[2019-04-14] MEDS ORDERED: SUCCINYLCHOLINE CHLORIDE 100 MG/5 ML SYR IV ONE (16:21)
[2019-04-14] MEDS ORDERED: ROCURONIUM BROMIDE 10 MG/ML 10 ML VIAL IV ONE (16:21)
[2019-04-14] MEDS ORDERED: GLYCOPYRROLATE 0.2 MG/ML 2 ML VIAL ONE (16:21)
[2019-04-14] MEDS ORDERED: PHENYLEPHRINE-0.9% NACL SYG 1 MG/10 ML SYRINGE ONE (16:21)
[2019-04-14] MEDS ORDERED: PROPOFOL 10 MG/ML 20 ML VIAL IV ONE (16:21)
[2019-04-14] MEDS ORDERED: LIDOCAINE 1% INJ 10MG/ML (20 ML MDV) ONE (16:21)
[2019-04-14] MEDS ORDERED: NEOSTIGMINE 1 MG/ML 10 ML VIAL ONE (16:21)
[2019-04-14] MEDS ORDERED: BUPIVACAIN-EPI 0.25%-1:200,000 30 ML VIAL SQ ONE (16:50)
[2019-04-14] MEDS ORDERED: LACTATED RINGERS 1,000 ML IV ONE (17:30)
[2019-04-14] MEDS ORDERED: HYDROmorphone 0.5 MG/0.5 ML SYRINGE IVP PRN (18:34)
[2019-04-14] MEDS ORDERED: diphenhydrAMINE 50 MG/ML 1 ML VIAL IVP PRN (18:34)
[2019-04-14] MEDS ORDERED: NALOXONE 0.4 MG/ML 1 ML VIAL IV PRN (18:34)
[2019-04-14] MEDS ORDERED: 0.9% NACL WITH KCL 20 MEQ/L 1,000 ML IV SCH (18:45)
--- NOTE | 2019-04-14 19:03 | P.OP ---
Date of Procedure: 04/14/19 Description of Procedure: SURGEON: ALEX HORTON MD PREOPERATIVE DIAGNOSES: 1. Symptomatic paraesophageal diaphragmatic hiatal hernia, type III 2. Gastroesophageal reflux disease 3. Ineffective esophageal dysmotility 4. Chronic obstructive pulmonary disease 5. Dysphagia 6. Hypertensive heart disease 7. Congestive heart failure, diastolic dysfunction 8. Macular degeneration 9. Chronic constipation POSTOPERATIVE DIAGNOSES: 1. Symptomatic paraesophageal diaphragmatic hiatal hernia, type III, large 2. Gastroesophageal reflux disease 3. Ineffective esophageal dysmotility 4. Chronic obstructive pulmonary disease 5. Dysphagia 6. Hypertensive heart disease 7. Congestive heart failure, diastolic dysfunction 8. Macular degeneration 9. Chronic constipation OPERATION: 1. Robotic-assisted da Cathleen Xi laparoscopic repair of LARGE incarcerated paraesophageal hiatal hernia, 9 x 6 cm, with [place] Biopatch A 8 x 8 cm. 2. Intraoperative esophagogastroduodenoscopy 3. Placement of esophageal bougie 48-Hungarian bougie to address pre-existing esophageal dysmotility ANESTHESIA: General with local anesthetic. ESTIMATED BLOOD LOSS: 10 mL SPECIMENS REMOVED: 1. Mediastinal and distal esophageal mass 5 cm COMPLICATIONS: None. Condition: stable Disposition: floor FINDINGS: 1. Midline intra-thoracic LARGE incarcerated paraesophageal hiatal hernia 9 x 6 cm, over 60% of stomach 2. Intraoperative upper endoscopy confirms complete closure of hiatal hernia from Hill grade 4 to Hill grade 1 3. Lower esophageal sphincter at 34 cm from the incisors INDICATIONS: The patient is a 73year-old female who presents with regurgitation, gastroesophageal reflux disease poorly controlled despite medications, and a symptomatic diaphragmatic hiatal hernia. Preoperative workup including upper endoscopy demonstrated a Hill grade 4 lower esophageal valve. She completed an esophageal manometry. Given the severity of symptoms, she had elected for surgical intervention. Benefits and risks including bleeding, infection, recurrence, dysphagia, injury to the lung, need for further surgery was described at length. Informed consent was obtained. DESCRIPTION: The patient was brought into the operating room and placed in supine position. Preoperatively she had received heparin subcutaneously for DVT prophylaxis. After general induction, the abdomen was prepped and draped in standard sterile fashion. The patient had previously voided prior to coming to the operating room. Ioban draping was placed along the abdomen. A timeout protocol was confirmed with the surgical team, for which the patient's name, procedure to be performed including DVT prophylaxis with bilateral SCDs, and preoperative antibiotics were also confirmed. A robotic da Cathleen Xi system was prepped and primed. At 9 cm from the xiphoid to just below the umbilicus, proposed port sites were marked with indelible marker along the left axillary line, left mid-clavicular line with each ports were marked 8 cm from each other. A 5 mm 0 degrees laparoscopic trocar entry was performed along the left upper quadrant. The abdomen was insufflated to 15 mmHg pressure was tolerated well. Diagnostic laparoscopy demonstrated no injury to bowel, viscera, or mesentery. No injury had occurred to the small bowel or viscera. Next, one 8 mm robotic port was placed along the right upper abdomen. An 8-mm port was were placed along the left lateral abdominal wall. The camera 8-mm port was maintained along the epigastrium via the hernia defect. Another 12 mm port was placed along the left upper abdominal wall after exchanging the 5 mm port. Please note that the ports were placed at least 20 cm away from the target anatomy. Care was taken to check that each robotic arm were safely away from collision with the bed or the patient. At the epigastrium, a small sized Meg liver retractor was placed under direct visualization with the Iron Dry Room Operator placed under the right shoulder of the patient. All robotic arms were used. The patient was repositioned in reverse Trendelenburg position at 16-degrees after lowering the bed. The robot was docked above the right side of the patient. Using a grasper for arm 3, a grasper for arm 1, including vessel sealer for arm 2, the robotic system was docked and primed as described. Instruments were interchanged by the catering administrative assistant. I had sat at the console. The gastrohepatic ligament was cleaved using a vessel sealer. The hiatal hernia sac was retracted from the intrathoracic portion into the abdomen. Next, the phrenoesophageal ligament was mobilized and the distal esophagus was mobilized circumferentially. The left and right crura was identified. Circumferentially, the hernia sac was excised and brought into the peritoneal cavity. Moderate dissection into the mediastinum to the azygous vein and along the aorta was performed to release the esophagus into the abdominal cavity. Additionally, adhesions about the mid body of the stomach and short gastrics were also released. Care was taken to avoid any gastrotomy. The measured defect was consistent with 9 cm axial length and 6 cm in width. After dissection, the distal esophagus of 2 cm was brought into the abdominal cavity. Once the hiatus and crura was dissected, 2-0 VLOC nonabsorbable suture was placed to re-approximate the diaphragmatic hiatus posteriorly. To buttress the repair, a [place] Biopatch A was prepared along the back table and cut in half of a gale-hole fashion as to reinforce the repair as an underlay. The mesh was placed along the crural repair and tagged using horizontal mattress sutures using 2-0 VLOC. Secondary to her esophageal dysmotility including dysphagia, intraoperative placement of 48-Hungarian bougie was selected as her frame was small. I went to the head of the bed to perform intraoperative esophagogastroduodenoscopy. An Olympus gastroscope was passed through posterior oropharynx. Retroflexion of the scope confirmed a Hill grade 1 lower esophageal valve. , Bougie was passed and left for 1 minute to allow dilation of her esophagus. The scope was re- entered confirmed no esophageal or gastric tears. The stomach had been desufflated. No evidence of leaks were found of the esophagus or stomach. The squamocolumnar junction and hiatus was placed at 34 cm from the incisors. The GI tract with desufflated This concluded the endoscopic portion of the case. The robot was undocked from the patient. I re-scrubbed into the case. All instruments and pneumoperitoneum and specimens were evacuated from the abdominal cavity. Incisions were reapproximated using 4-0 Monocryl in an interrupted subcuticular fashion. Liquid glue was applied to the skin. Local anesthetic was infiltrated in all wounds for postop analgesia. Multiple intra-abdominal films were obtained. At the end of the procedure, needle, sponge, and instrument count was verified correct by the rn surgical pcu. The patient had tolerated the procedure well and was taken to the postanesthesia unit in stable condition. Intraoperative films were reviewed with the patient's family who was pleased with the level of care. Console time 57 minutes.
[2019-04-14] MEDS: ALBUTEROL NEBULIZED 2.5 MG/3 ML INHALATION SCH (19:40)
[2019-04-14] MEDS: SIMETHICONE 40 MG/0.6 ML DROPS 2,000 MG/30 ML BOTTLE PO SCH (20:43)
[2019-04-14] MEDS ORDERED: MAGNESIUM HYDROXIDE 2,400 MG/10 ML CUP PO PRN (21:16)
[2019-04-14] MEDS ORDERED: MONTELUKAST 10 MG TAB PO PRN (21:16)
[2019-04-15] MEDS: ONDANSETRON 4 MG/2 ML VIAL IVP SCH ×4 (00:06→17:16)
[2019-04-15] MEDS: DEXAMETHASONE SOD PHOSPHATE 4 MG/ML 1 ML VIAL IV SCH ×4 (00:06→17:15)
[2019-04-15] MEDS: METOCLOPRAMIDE 5 MG/ML 2 ML VIAL IVP SCH ×4 (00:07→17:16)
[2019-04-15] MEDS: SIMETHICONE 40 MG/0.6 ML DROPS 2,000 MG/30 ML BOTTLE PO SCH ×3 (05:54→17:15)
[2019-04-15] MEDS: ALBUTEROL NEBULIZED 2.5 MG/3 ML INHALATION SCH ×4 (07:29→21:16)
[2019-04-15 08:08] LABS: African American GFR (CKD) >90 (>60 ml/min/1.73 sqM); Anion Gap 7 mmol/L; Blood Urea Nitrogen 8 mg/dL (7-17); Carbon Dioxide 27 mmol/L (22-30); Chloride 101 mmol/L (98-107); Magnesium 1.9 mg/dL (1.6-2.3); Non-African American GFR(CKD) >90 (>60 ml/min/1.73 sqM); Phosphorus 3.1 mg/dL (2.5-4.5); Potassium 4.5 mmol/L (3.5-5.1); Sodium 135 mmol/L (137-145)
[2019-04-15] MEDS: PANTOPRAZOLE 40 MG/10 ML VIAL IV SCH (08:58)
[2019-04-15] MEDS: FUROSEMIDE 20 MG TAB PO SCH (08:58)
[2019-04-15] MEDS: LISINOPRIL 10 MG TAB PO SCH (08:58)
[2019-04-15] MEDS: TAMSULOSIN 0.4 MG CAP.ER.24H PO SCH (09:00)
[2019-04-15] MEDS: 0.9% NACL WITH KCL 20 MEQ/L 1,000 ML IV SCH ×2 (09:01→20:28)
[2019-04-15] MEDS: ASPIRIN 81 MG PO SCH (09:01)
[2019-04-15] MEDS: ENOXAPARIN 30 MG/0.3 ML SYRINGE SQ SCH (09:01)
[2019-04-15] MEDS: DOXAZOSIN 2 MG TAB PO SCH (09:04)
--- NOTE | 2019-04-15 13:29 | FL ---
EXAMINATION TYPE: FL esophagus cervic/pharynx DATE OF EXAM ORDERED: 04/15/2019 1:03 PM HISTORY: Hiatal hernia repair. COMPARISON: None. FINDINGS: The pathologic drank contrast. There is prompt egress of contrast from the esophagus into the stomach. The stomach was distended with air and fluid. After 10 minutes only a scant amount of co ntrast exited the stomach. The ligament of Treitz was never clearly demonstrated. There was a small a mount of free air. No extravasation was demonstrated. IMPRESSION: STATUS POST HIATAL HERNIA REPAIR.
[2019-04-15 14:28] VITALS: BMI 24.5
--- NOTE | 2019-04-15 19:23 | P.PN ---
Subjective Progress Note Date: 04/15/19 CHIEF COMPLAINT: Paraesophageal hiatal hernia with obstruction HISTORY OF PRESENT ILLNESS: The patient is a 73-year-old female postop day 1 status post pair of incarcerated large intrathoracic paraesophageal hiatal hernia 40-50% incarceration. She feels well. She is tolerating a diet. No passage of flatus. She denies any eructation. Family is at bedside. Pain is controlled. She is not requiring any pain medications. She completed her esophagram. ROS: No reports of nausea and vomiting. No bowel movements. No fevers or chills. No new chest pain. No productive sputum PHYSICAL EXAM: VITAL SIGNS: Reviewed CONSTITUTIONAL: Well developed and in no acute distress. EYES: Conjuctivae without sclera icterus. Extraocular movements grossly intact. HEAD, EARS, NOSE, THROAT: Moist buccal mucosa. Head is atraumatic, normocephalic. Hears conversational speech. No nasal drainage. RESPIRATORY: Non-labored respirations and equal bilateral excursions. CARDIOVASCULAR: Palpable 2+ radial pulses. Regular rate. Regular rhythm. ABDOMEN: Incisions clean dry and intact. Soft. Non-tender MUSCULOSKELETAL: No gross deformity of the lower extremities noted. No clubbing. No cyanosis. SKIN: Good skin turgor. Well perfused. NEUROLOGIC: Cranial nerves I through XII grossly intact. No focal or lateralizing signs. PSYCH: Appropriate affect. Alert and oriented to person, place and time. CLINICAL LABS: Electrolytes within normal limits ESOPHAGRAM: Images independently reviewed demonstrating no recurrent hiatal hernia. Complete reduction of large intrathoracic stomach from the chest and abdomen. Stomach is moderately dilated however. This is my independent ASSESSMENT: 1. Incarcerated paraesophageal hiatal hernia with obstruction PLAN: 1. Continue hospitalization pending flatus/bowel movement. 2. Dietary guidelines reviewed. 3. Start Miralax Objective - Vital Signs Vital signs: Vital Signs Temp 97.7 F 04/15/19 14:33 Pulse 70 04/15/19 16:44 Resp 16 04/15/19 14:33 BP 102/61 04/15/19 14:33 Pulse Ox 96 04/15/19 14:33 Intake & Output 04/15/19 04/15/19 04/16/19 06:59 18:59 06:59 Intake Total 900 Output Total 600 1150 Balance 300 -1150 Weight 57 kg 57 kg Intake: IV 250 Intake, IV Titration 650 Amount 0.9% NaCl with KCl 20 Meq 600 /l 1,000 ml @ 75 mls/hr IV .[id number] [facility] Rx#: [id number] ceFAZolin 2 gm In Sodium 50 Chloride 0.9% 50 ml @ 100 mls/hr IVPB Q8HR [facility] Rx# :[id number] Output: Urine 600 1150 Other: Voiding Method Toilet # Voids 1 - Labs CBC & Chem 7: 04/15/19 06:53 Labs: Abnormal Lab Results - Last 24 Hours (Table) 04/15/19 Range/Units 06:53 Sodium 135 L (137-145) mmol/L Assessment and Plan (1) Congestive heart failure (CHF) Current Visit: Yes Status: Acute Code(s): I50.9 - HEART FAILURE, UNSPECIFIED SNOMED Code(s): 28080821 (2) Gastroesophageal reflux disease Current Visit: Yes Status: Acute Code(s): K21.9 - GASTRO-ESOPHAGEAL REFLUX DISEASE WITHOUT ESOPHAGITIS SNOMED Code(s): 599441339 (3) Paraesophageal hernia with obstruction but no gangrene Current Visit: Yes Status: Acute Code(s): K44.0 - DIAPHRAGMATIC HERNIA WITH OBSTRUCTION, WITHOUT GANGRENE SNOMED Code(s): 277173529
[2019-04-15] MEDS ORDERED: ATENOLOL 25 MG TAB PO SCH (21:00)
[2019-04-15] MEDS ORDERED: POLYETHYLENE GLYCOL 3350 17 GM POWD.PACK PO SCH (21:00)
[2019-04-15 21:29] VITALS: RESP 18
[2019-04-16] MEDS: DEXAMETHASONE SOD PHOSPHATE 4 MG/ML 1 ML VIAL IV SCH ×3 (00:20→11:56)
[2019-04-16] MEDS: SIMETHICONE 40 MG/0.6 ML DROPS 2,000 MG/30 ML BOTTLE PO SCH ×3 (00:21→11:53)
[2019-04-16] MEDS: METOCLOPRAMIDE 5 MG/ML 2 ML VIAL IVP SCH ×3 (00:21→11:55)
[2019-04-16] MEDS: ONDANSETRON 4 MG/2 ML VIAL IVP SCH ×3 (00:21→11:56)
[2019-04-16] MEDS ORDERED: BISACODYL 5 MG TABLET.DR PO PRN (08:00)
[2019-04-16] MEDS: ALBUTEROL NEBULIZED 2.5 MG/3 ML INHALATION SCH ×2 (08:04→11:32)
[2019-04-16] MEDS: PANTOPRAZOLE 40 MG/10 ML VIAL IV SCH (08:49)
[2019-04-16] MEDS: LISINOPRIL 10 MG TAB PO SCH (08:49)
[2019-04-16] MEDS: ENOXAPARIN 30 MG/0.3 ML SYRINGE SQ SCH (08:49)
[2019-04-16] MEDS: ASPIRIN 81 MG PO SCH (08:50)
[2019-04-16] MEDS: DOXAZOSIN 2 MG TAB PO SCH (08:50)
[2019-04-16] MEDS: FUROSEMIDE 20 MG TAB PO SCH (08:50)
[2019-04-16] MEDS: TAMSULOSIN 0.4 MG CAP.ER.24H PO SCH (08:50)
[2019-04-16 08:51] VITALS: TEMP 97.7
[2019-04-16 08:53] VITALS: BP 135/82
[2019-04-16] MEDS ORDERED: POLYETHYLENE GLYCOL 3350 17 GM POWD.PACK PO SCH (09:00)
[2019-04-16] MEDS: 0.9% NACL WITH KCL 20 MEQ/L 1,000 ML IV SCH (10:02)
[2019-04-16 11:42] VITALS: PULSE 78
--- NOTE | 2019-04-16 13:25 | P.DS ---
Providers Date of admission: 04/14/2019 Expected date of discharge: 04/16/19 Attending physician: Mary Mead Primary care physician: [place] - Discharge Diagnosis(es) (1) Congestive heart failure (CHF) Current Visit: Yes Status: Acute (2) Gastroesophageal reflux disease Current Visit: Yes Status: Acute (3) Paraesophageal hernia with obstruction but no gangrene Current Visit: Yes Status: Acute Hospital Course: POSTOPERATIVE DIAGNOSES: 1. Symptomatic paraesophageal diaphragmatic hiatal hernia, type III, large with obstruction and incarceration. 2. Gastroesophageal reflux disease 3. Ineffective esophageal dysmotility 4. Chronic obstructive pulmonary disease 5. Dysphagia 6. Hypertensive heart disease 7. Congestive heart failure, diastolic dysfunction 8. Macular degeneration 9. Chronic constipation CHIEF COMPLAINT: Paraesophageal hiatal hernia with obstruction HISTORY COURSE: The patient is a 73-year-old female admitted to undergo repair for paraesophageal hiatal hernia. Findings were consistent with diaphragmatic hiatal hernia with obstruction and incarceration. Additionally, more than 40+ percent of the stomach was incarcerated into the mediastinum and chest. Postoperatively, chest x-ray and esophagram was performed demonstrating complete repair and reduction of her hernia with a large distended stomach. Today she is now passing flatus. No bowel movements. She does have history of chronic constipation. She feels well. She's has ambulated without difficulty. She is also voiding without difficulty. She is tolerating liquid diet. ROS: No reports of nausea and vomiting. No bowel movements. No fevers or chills. No new chest pain. No productive sputum PHYSICAL EXAM: VITAL SIGNS: Reviewed CONSTITUTIONAL: Well developed and in no acute distress. EYES: Conjuctivae without sclera icterus. Extraocular movements grossly intact. HEAD, EARS, NOSE, THROAT: Moist buccal mucosa. Head is atraumatic, normocephalic. Hears conversational speech. No nasal drainage. RESPIRATORY: Non-labored respirations and equal bilateral excursions. CARDIOVASCULAR: Palpable 2+ radial pulses. Regular rate. Regular rhythm. ABDOMEN: Incisions clean dry and intact. Soft. Non-tender MUSCULOSKELETAL: No gross deformity of the lower extremities noted. No clubbing. No cyanosis. SKIN: Good skin turgor. Well perfused. NEUROLOGIC: Cranial nerves I through XII grossly intact. No focal or lateralizing signs. PSYCH: Appropriate affect. Alert and oriented to person, place and time. ASSESSMENT: 1. Incarcerated paraesophageal hiatal hernia with obstruction and incarceration PLAN: 1. She is passing flatus and doing very well. 2. She has chronic constipation and placed on suppositories for home 3. Stable for discharge 4. Madalyn diet education personally reviewed. Laboratory Last Values Sodium 135 mmol/L (137-145) L 04/15/19 06:53 Potassium 4.5 mmol/L (3.5-5.1) 04/15/19 06:53 Chloride 101 mmol/L (98-107) 04/15/19 06:53 Carbon Dioxide 27 mmol/L (22-30) 04/15/19 06:53 Anion Gap 7 mmol/L 04/15/19 06:53 BUN 8 mg/dL (7-17) 04/15/19 06:53 Creatinine 0.53 mg/dL (0.52-1.04) 04/15/19 06:53 Est GFR (CKD-EPI)AfAm >90 (>60 ml/min/1.73 sqM) 04/15/19 06:53 Est GFR (CKD-EPI)NonAf >90 (>60 ml/min/1.73 sqM) 04/15/19 06:53 POC Glucose (mg/dL) 118 mg/dL (75-99) H 04/14/19 13:13 POC Glu Therapeutic Consultant Allison Wisdom 04/14/19 13:13 Phosphorus 3.1 mg/dL (2.5-4.5) 04/15/19 06:53 Magnesium 1.9 mg/dL (1.6-2.3) 04/15/19 06:53 Vital Signs Temp 97.7 F 04/16/19 07:00 Pulse 78 04/16/19 11:42 Resp 18 04/16/19 07:00 BP 135/82 04/16/19 08:52 Pulse Ox 94 L 04/16/19 07:00 Intake & Output 04/15/19 04/16/19 04/16/19 18:59 06:59 18:59 Intake Total 700 Output Total 1150 1150 Balance -1150 -450 Weight 57 kg Intake: Intake, IV Titration 500 Amount 0.9% NaCl with KCl 20 Meq 500 /l 1,000 ml @ 75 mls/hr IV .[id number] [facility] Rx#: [id number] Oral 200 Output: Urine 1150 1150 Other: Voiding Method Toilet Toilet Toilet # Voids 1 2 1 Procedures: OPERATION: 1. Robotic-assisted da Cathleen Xi laparoscopic repair of LARGE incarcerated paraesophageal hiatal hernia, 9 x 6 cm, with [place] Biopatch A 8 x 8 cm. 2. Intraoperative esophagogastroduodenoscopy 3. Placement of esophageal bougie 48-Paraguayan bougie to address pre-existing esophageal dysmotility ANESTHESIA: General with local anesthetic. ESTIMATED BLOOD LOSS: 10 mL SPECIMENS REMOVED: 1. Mediastinal and distal esophageal mass 5 cm COMPLICATIONS: None. Condition: stable Disposition: floor Patient Condition at Discharge: Good Plan - Discharge Summary Discharge Rx Participant: Yes New Discharge Prescriptions: New Bisacodyl [Dulcolax] 5 mg PO DAILY PRN #10 tablet.dr PRN Reason: Constipation Polyethylene Glycol 3350 [Miralax] 17 gm PO DAILY #14 packet Simethicone 40 mg/0.6 ml Drops [Mylicon Drops] 40 mg PO PCHS PRN #30 ml PRN Reason: Gas Ondansetron Odt [Zofran Odt] 4 mg PO Q8HR PRN #9 tab PRN Reason: Nausea Bisacodyl [Dulcolax] 10 mg RECTAL DAILY #3 supp Continue Atenolol [Tenormin] 25 mg PO HS Simvastatin [Zocor] 20 mg PO HS Doxazosin [Cardura] 2 mg PO QAM Aspirin [Adult Low Dose Aspirin EC] 81 mg PO DAILY Montelukast [Singulair] 10 mg PO DAILY PRN PRN Reason: Congestion Lisinopril [Prinivil] 10 mg PO QAM Furosemide [Lasix] 20 mg PO DAILY Docusate [Colace] 100 mg PO BID Magnesium Hydroxide [Milk of Magnesia] 400 mg PO DAILY PRN PRN Reason: Constipation Discontinued Cholecalciferol (Vitamin D3) [Vitamin D3] 2,000 unit PO BID Vit C/E/Zn/Coppr/Lutein/Zeaxan [Preservision Areds 2 Softgel] 1 each PO BID Cranberry Fruit Extract [Cranberry] 500 mg PO DAILY Discharge Medication List Aspirin [Adult Low Dose Aspirin EC] 81 mg PO DAILY 10/13/17 [History] Atenolol [Tenormin] 25 mg PO HS 10/13/17 [History] Doxazosin [Cardura] 2 mg PO QAM 10/13/17 [History] Simvastatin [Zocor] 20 mg PO HS 10/13/17 [History] Furosemide [Lasix] 20 mg PO DAILY 01/16/19 [History] Lisinopril [Prinivil] 10 mg PO QAM 01/16/19 [History] Montelukast [Singulair] 10 mg PO DAILY PRN 01/16/19 [History] Docusate [Colace] 100 mg PO BID 04/11/19 [History] Magnesium Hydroxide [Milk of Magnesia] 400 mg PO DAILY PRN 04/11/19 [History] Bisacodyl [Dulcolax] 5 mg PO DAILY PRN #10 tablet.dr 04/15/19 [Rx] Ondansetron Odt [Zofran Odt] 4 mg PO Q8HR PRN #9 tab 04/15/19 [Rx] Polyethylene Glycol 3350 [Miralax] 17 gm PO DAILY #14 packet 04/15/19 [Rx] Simethicone 40 mg/0.6 ml Drops [Mylicon Drops] 40 mg PO PCHS PRN #30 ml 04/15/19 [Rx] Bisacodyl [Dulcolax] 10 mg RECTAL DAILY #3 supp 04/16/19 [Rx] Follow up Appointment(s)/Referral(s): Mary Mead MD [STAFF PHYSICIAN] - 04/18/19 Patient Instructions/Handouts: Laparoscopic Hiatal Hernia Repair (DC) Activity/Diet/Wound Care/Special Instructions: No lifting over 4 pounds in 4 weeks, May 15. September shower. No bath tub soaks for two weeks until Apr 28. Diet as tolerated. Take pain medications ibuprofen and tylenol scheduled for the first 48hr/2 days for best pain relief. Use ice pack along the incision for the next 24 hrs to decrease swelling. FULL LIQUID DIET Discharge Disposition: HOME SELF-CARE
== END 2019-04-16 14:40 | disposition home or self-care (01) | DRG 327 ==
LOC: ORWHC2ENDO 12:39 → EDSTATUS 13:30 → 4SSUR 18:48 → ORWHC2ENDO 21:19 → 4SSUR 21:20 → ORWHC2ENDO 04-16 14:40 → 4SSUR 04-16 14:40
PROVIDERS: ADMIT Surgery Plastic and Reconstructive Surgery; ATTEND Surgery Plastic and Reconstructive Surgery
PROC: 8E0W4CZ Robotic Assisted Procedure of Trunk Region, Percutaneous Endoscopic Approach (ICD-10-PCS; 2019-04-14)
PROC: 0DJ08ZZ Inspection of Upper Intestinal Tract, Via Natural or Artificial Opening Endoscopic (ICD-10-PCS; 2019-04-14)
PROC: 0BUT4JZ Supplement Diaphragm with Synthetic Substitute, Percutaneous Endoscopic Approach (ICD-10-PCS; principal; 2019-04-14 14:25)
DX: K44.0 Diaphragmatic hernia with obstruction, without gangrene (principal); I50.30 Unspecified diastolic (congestive) heart failure; K21.9 Gastro-esophageal reflux disease without esophagitis; K22.4 Dyskinesia of esophagus; J44.9 Chronic obstructive pulmonary disease, unspecified; I11.0 Hypertensive heart disease with heart failure; H35.30 Unspecified macular degeneration; K59.09 Other constipation; K31.89 Other diseases of stomach and duodenum; R16.0 Hepatomegaly, not elsewhere classified; E78.5 Hyperlipidemia, unspecified; Z79.899 Other long term (current) drug therapy; Z79.82 Long term (current) use of aspirin; Z87.440 Personal history of urinary (tract) infections; Z98.890 Other specified postprocedural states; Z90.710 Acquired absence of both cervix and uterus; Z87.39 Personal history of other diseases of the musculoskeletal system and connective tissue; Z88.8 Allergy status to other drugs, medicaments and biological substances; Z80.8 Family history of malignant neoplasm of other organs or systems
CPT/HCPCS: 74210; 80051; 82565; 83735; 84100; 84520; 94640

== ENCOUNTER → 2020-09-03 | Outpatient (CLI) | payer MEDICARE, OTHER ==
--- NOTE | 2020-09-03 14:09 | BD ---
EXAMINATION TYPE: Axial Bone Density DATE OF EXAM: 09/03/2020 COMPARISON: 06/03/2018 CLINICAL HISTORY: Postmenopausal female. Disorder. Height: 59.5 IN Weight: 121 LBS FRAX RISK QUESTIONS: Secondary Osteoporosis: 3. Menopause before 45: PARTIAL HYST AGE 33 RISK FACTORS HISTORY OF: Active: YES Postmenopausal woman: PARTIAL HYST AGE33 Lost more than 2 inches in height since high school: YES 05/11" MEDICATIONS: Additional Medications: VIT D, VIT FOR EYES, SIMVASTATIN, MONTELUKAST SODIUM, FLONASE, PRESERVISION, LASIX, LISINOPRIL, ASPIRIN, ATENOLOL, DOXAZOSIN MESYLATE, EXAM MEASUREMENTS: Bone mineral densitometry was performed using the [employer] System. Bone mineral density as measured about the Lumbar spine is: ----- L1-L4(G/cm2): 1.153 T Score Values are as follows: ----- L2: 0.2 ----- L3: 0.4 ----- L4: -0.7 ----- L1-L4: -0.2 Bone mineral density has: Decreased -2.2% since study of: 06/03/2018 Bone mineral density about the R hip (g/cm2): 0.780 Bone mineral density about the L hip (g/cm2): 0.789 T Score values are as follows: -----R Neck: -1.9 -----L Neck: -1.8 -----R Total: -1.9 -----L Total: -1.3 Bone mineral density has: Decreased -3.0% since study of: 06/03/2018 IMPRESSION: Osteopenia (T Score between -2.5 and -1) remains present. There remains slightly increased risk of fracture and the patient may be considered for treatment. Re-Screen 2-5 years. NOTE: T-SCORE=SD OF THE YOUNG ADULT MEAN.
--- NOTE | 2020-09-04 09:20 | MM ---
Reason for exam: screening (asymptomatic). Last mammogram was performed 1 year and 6 months ago. History: Patient is postmenopausal and history of other cancer. Physical Findings: A clinical breast exam by your physician is recommended on an annual basis and results should be correlated with mammographic findings. MG 3D Screening Mammo W/Cad Bilateral CC and MLO view(s) were taken. Prior study comparison: March 14, 2019, bilateral MG 3d screening mammo w/cad. February 25, 2018, bilateral MG 3d screening mammo w/cad. The breast tissue is heterogeneously dense. This may lower the sensitivity of mammography. There is no discrete abnormality. No significant changes when compared with prior studies. ASSESSMENT: Benign, BI-RAD 2 RECOMMENDATION: Routine screening mammogram of both breasts in 1 year.
== END | disposition home or self-care (01) ==
LOC: RADMAMWWP 11:44
PROVIDERS: ATTEND Obstetrics & Gynecology
DX: Z12.31 Encounter for screening mammogram for malignant neoplasm of breast (principal); Z78.0 Asymptomatic menopausal state; M85.80 Other specified disorders of bone density and structure, unspecified site
CPT/HCPCS: 77063; 77067; 77080

== ENCOUNTER → 2020-11-25 | Outpatient (CLI) | payer MEDICARE, OTHER ==
[2020-11-25 08:46] VITALS: BP 168/111; PULSE 61; RESP 16; TEMP 97.7
--- NOTE | 2020-11-25 09:03 | P.PN ---
Subjective Progress Note Date: 11/25/20 This is a 75-year-old lady with history of chronic lower back pain on the left side of her back with radiation to the left foot with occasional numbness and tingling in the left foot. The patient had lumbar medial branch RFA on the left side about 3 years ago which has helped her pain until now. It also helped her left leg pain as she states. The patient had similar pain 3 years ago for which she had RFA as mentioned above and helped her pain significantly. Patient denies new-onset weakness, bowel/bladder incontinence, or any other signs or symptoms of cauda equina syndrome. There are no signs of acute intoxication, and no indications of medication diversion or overuse. In addition to above, 13-point review of systems is also negative for chest pain, shortness of breath, changes in vision, changes in hearing, new onset weakness, abdominal pain, diarrhea, extreme fatigue, malaise, fever, skin changes, homicidal or suicidal ideation, or bowel or bladder incontinence. Vital Signs: Reviewed in EMR Gen: AAOx3, NAD HEENT: PERRLA,hearing grossly normal Pulm: resp unlabored Neck: supple, trachea midline Neuro exam of the lower extremities: Mildly decreased muscle strength to 4 out of 5 for knee flexion and extension on the left side Straight leg raising test: Negative on the left side Thomas's test: Negative on the left side Facet loading test: Positive on the left side Tenderness in the paravertebral musculature: Positive tenderness in the lumbar paravertebral musculature on the left side. Neuro: CN II-XII grossly intact, Imaging: Reviewed in EMR/chart Assessment: Lumbar spondylosis without myelopathy Lumbar DDD Left lumbar radiculopathy Plan: 1. Explanation: Opioid and psychological risk scores were reviewed. Diagnoses, prognoses, and multiple treatment options including but not limited to physical therapy, interventional therapies, adjuvant medical therapies, narcotic medication therapies, and surgery were discussed with the patient and all questions were answered to the patient's satisfaction. 2. Opioid agreement: Signed with the patient and the patient is warned not to use opioids while driving or before driving and not to combine opioids with benzodiazepines or alcohol. 3. Counseling: The patient was counseled extensively on SMOKING CESSATION, BODY MASS INDEX, EXERCISE. Specifically, the patient was instructed regarding the importance of smoking cessation, obesity, and exercise in the context of both chronic pain and overall health. 4. Procedures: Eventhough I think epidural injection may help her leg pain better than medial branch block, however the fact that a similar pain ,3 years ago, improved by RFA on the lumbar medial branches on the left side makes me schedule her for a left lumbar medial branch RFA of medial branches L2, L3, L4, and L5. 5. Consultations: None 6. Investigations: None 7. Medications: None prescribed today 8. Disposition: Proceed with the above-mentioned procedure as soon as possible 9. Maps were reviewed and were appropriate. Objective - Vital Signs Vital signs: Vital Signs Temp 97.7 F 11/25/20 08:42 Pulse 61 11/25/20 08:42 Resp 16 11/25/20 08:42 BP 168/111 11/25/20 08:42 Pulse Ox 99 11/25/20 08:42
== END | disposition home or self-care (01) ==
LOC: PNWHC3 08:29
PROVIDERS: ATTEND Anesthesiology
DX: M47.817 Spondylosis without myelopathy or radiculopathy, lumbosacral region (principal); M47.26 Other spondylosis with radiculopathy, lumbar region; M51.16 Intervertebral disc disorders with radiculopathy, lumbar region; R20.2 Paresthesia of skin
CPT/HCPCS: 99211

== ENCOUNTER 2020-12-20 08:47 | Day surgery (SDC) | payer MEDICARE, OTHER ==
[2020-12-19 11:22] VITALS: BMI 23.4
[2020-12-20 09:11] VITALS: TEMP 97.9
[2020-12-20] MEDS ORDERED: LACTATED RINGERS 1,000 ML IV ONE (09:19)
[2020-12-20] MEDS ORDERED: ROPIVACAINE 5MG/ML 20ML VIAL ONE (09:25)
[2020-12-20] MEDS ORDERED: LIDOCAINE 1% INJ 10MG/ML (20 ML MDV) ONE (09:25)
[2020-12-20] MEDS ORDERED: MIDAZOLAM 2 MG/2 ML VIAL ONE (09:25)
[2020-12-20] MEDS ORDERED: fentaNYL (PF) 50 MCG/ML 2 ML AMP ONE (09:25)
--- NOTE | 2020-12-20 09:54 | P.PCN ---
Date of Procedure: 12/20/20 Description of Procedure: PREOPERATIVE DIAGNOSIS: Lumbar Spondylosis POSTOPERATIVE DIAGNOSIS: Same PROCEDURES: Radiofrequency ablation of the left L2 L3, L4, L5 medial branches with fluoroscopic guidance SURGEON: Carlton Zayas MD. ANESTHESIA: Lidocaine 1% 5 mL, Monitored anesthesia care with anesthesia team EBL: Minimal Fluoroscopy was used for the procedure and images were saved in the radiology portion of the chart. PROCEDURE INDICATION: The patient with low back pain secondary to lumbar facet arthropathy who had more than 50% relief of pain with previous diagnostic lumbar medial branch block X2. PROCEDURE DESCRIPTION / TECHNIQUE: The patient was seen and identified in the preoperative area. Risks, benefits, complications, including but not limited to risk of infection ,bleeding , allergic reactions to the medications and incomplete pain relief , and alternatives were discussed with the patient, the patient agreed to proceed with the procedure and signed the consent. IV was started. The operative site was marked. Patient was taken to the OR and time out was completed. The patient was placed in the prone position on the procedure table. The lumbar area was prepped and draped in the usual sterile fashion. . Vital signs were closely monitored during the procedure .IV sedation was used during the procedure to decrease patients anxiety. Using AP and then oblique fluoroscopy, the "eye of the Alexys dog" corresponding to the connection between the superior and transverse articular processes of the L3 L4 and L5 as well as the sacral ala were identified, marked, and localized with 1% lidocaine. Subsequently, an 18 guage 100 mm radiofrequency cannula with a 10-mm active tip was advanced guided by fluoroscopy to the identified target at each site. Needle positioning was confirmed on AP, oblique and lateral fluoroscopy. Motor testing at 2.5 Hz was done with paraspinal muscle stimulation only, and no radicular symptoms down the legs. Then 1 mL 0.5% ropivacaine was injected in each site. Radiofrequency thermocoagulation at 80 degrees celsius for 90 seconds was then performed. [place] were removed. Sterile dressings were applied. COMPLICATIONS: No acute complications. DISPOSITION / PLANS: The patient was placed in a supine position and transferred to the recovery area in a stable condition for observation and was discharged from the recovery room after meeting discharge criteria. Home discharge instructions given to the patient by the staff. The patient will follow up in clinic in 4 weeks.
[2020-12-20] MEDS ORDERED: IV FLUID CONTINUATION 1,000 ML IV ONE (09:59)
[2020-12-20 10:02] VITALS: RESP 16
--- NOTE | 2020-12-20 10:02 | FL ---
EXAMINATION TYPE: FL guided pain mgmt statistic DATE OF EXAM: 12/20/2020 HISTORY: Fluoroscopy time 18 seconds of fluoroscopy provided. IMPRESSION: 1. Fluoroscopy time.
[2020-12-20 10:21] VITALS: BP 134/76; PULSE 60
== END 2020-12-20 10:35 | disposition home or self-care (01) ==
LOC: ORPAIN 08:47
PROVIDERS: ATTEND Anesthesiology
DX: M47.816 Spondylosis without myelopathy or radiculopathy, lumbar region (principal); I10 Essential (primary) hypertension; E78.5 Hyperlipidemia, unspecified; H35.30 Unspecified macular degeneration; Z88.8 Allergy status to other drugs, medicaments and biological substances; K21.9 Gastro-esophageal reflux disease without esophagitis; Z79.899 Other long term (current) drug therapy; Z79.82 Long term (current) use of aspirin
CPT/HCPCS: 64635; 64636; J2250; J2001; J3010; J2795

== ENCOUNTER → 2021-01-20 | Outpatient (CLI) | payer MEDICARE, OTHER ==
--- NOTE | 2021-01-20 13:31 | P.PN ---
Subjective Progress Note Date: 01/20/21 This is a follow-up visit for this 75 years old female with a chronic history of severe low back pain, stay close with lumbar degenerative disc disease, lumbar spondylosis with lumbar facet arthropathy, currently we have an RFA of the medial branch lumbar area on the left side , and she continued to have severe low back pain mostly in the low back area with radiation to the left buttock that is constant and increased with any activity, denies any motor or sensory deficit she denies any numbness or tingling sensation in the pain is constant and increases with any movement Objective - Exam Physical Examinations : -Constitutiona : Cooperative , not in acute distress . -HEENT : nech : supple , no Lymphadenopathy , normal thyroid size . : eyes : no ptosis , no icterus, no photophobia . - neurologic : Cranial nerve II to XII intact , no focal neurological deffecit . -psychatric : alert , oriented X 3 , appropriate affect , intact judgment and insight . -Lymphatic : no Lymphadenopathy . - musculoskeltal : Lumber spine moter stegnth lower extremities ,thigh and legs 5/5 Right side , 5/5 Left side deep tendon reflexes : normal Knee Jerk , normal ankle Jerk lumber facet Loading Test =positive Right , positive Left Range of motion of the lumbar spine Flexion 30 degrees, extension 10 degrees strait leg raising test = positive at degree Fabere test= positive Right , and positive LT . Sever tenderness over the iliolumbar ligament on Left sides . Multiple trigger point identified in the left side lumbar paraspinal muscles Assessment and Plan Plan: Assessment and plan=1-left iliolumbar ligament neuralgia. 2-myofascial pain syndrome left side lumbar paraspinal muscles. 3-LUmber spondylosis with lumbar facet art hropathy. 4-LUmber degenerative disc disease. Patient continued to have severe low back pain after RFA of the medial branch lumbar area. Patient could benefit from trigger point injections left-sided paraspinal muscles and from left iliolumbar ligament steroid injection under fluoroscopy guidance. - PQRS measures = - Patient's medications are documented in the chart. -Tobacco use is negative and counseling.Given. -Patient's has not received pneumococcal vaccine. -Advanced care planning discussed, patient not eligible. -Opiate contract not signed. -Pain positive and follow-up visit/procedure is scheduled. -Patient's blood pressure measured [ 165/94 ] , and documented in the record ,and patient will follow up with the primary care. -Patient's weight was measured and body mass index [ ] above the,normal limits and counseling was done. and patient instructed to follow-up with the primary care physician. -Patient was not identified as an unhealthy alcohol user Time with Patient: Less than 30
[2021-01-20 13:36] VITALS: BP 165/94; PULSE 59; RESP 18; TEMP 97.9
== END | disposition home or self-care (01) ==
LOC: PNWHC3 12:57
PROVIDERS: ATTEND Specialist
DX: G58.8 Other specified mononeuropathies (principal); M51.36 Other intervertebral disc degeneration, lumbar region; M79.18 Myalgia, other site; M47.896 Other spondylosis, lumbar region
CPT/HCPCS: 99211

== ENCOUNTER 2021-03-06 08:17 | Day surgery (SDC) | payer MEDICARE, OTHER ==
[2021-03-05 11:17] VITALS: BMI 23.6
[~2021-03-06 08:17] MED LIST changes: -ACETAMINOPHEN TAB 500 MG TAB PO STA; -DEXAMETHASONE SOD PHOSPHATE 10 MG/ML 1 ML VIAL IV ONE; -GABAPENTIN 300 MG CAP PO STA; -HEPARIN SODIUM,PORCINE 5,000 UNIT/ML 1 ML VIAL SQ ONE; -HYDROmorphone 0.5 MG/0.5 ML SYRINGE IVP PRN; -LIDOCAINE 1% 20 ML VIAL (10MG/ML) FOR IV START INTRADERMA PRN; -MIDAZOLAM 2 MG/2 ML VIAL IV PRN; -ONDANSETRON 4 MG/2 ML VIAL IVP ONE; -SCOPOLAMINE 1.5MG/72HR PATCH TRANSDERM ONE
[2021-03-06 08:49] VITALS: TEMP 98
[2021-03-06] MEDS ORDERED: fentaNYL (PF) 50 MCG/ML 2 ML AMP ONE (09:10)
[2021-03-06] MEDS ORDERED: MIDAZOLAM 2 MG/2 ML VIAL ONE (09:10)
[2021-03-06] MEDS ORDERED: methylPREDNISolone ACETATE 40 MG/ML 1 ML VIAL ONE (09:10)
[2021-03-06] MEDS ORDERED: ROPIVACAINE 5MG/ML 20ML VIAL ONE (09:10)
[2021-03-06] MEDS ORDERED: IV FLUID CONTINUATION 1,000 ML IV ONE (09:29)
--- NOTE | 2021-03-06 09:30 | P.PCN ---
Date of Procedure: 03/06/21 Procedure(s) Performed: Procedure= 1-left iliolumbar ligament steroid injection under fluoroscopy guidance (fluoroscopy image stored on file in the radiology Department ). 2-trigger point injection left side lumbar paraspinal muscles total of 3 trigger point injected. Preoperative diagnosis= 1-left iliolumbar ligament neuralgia 2-myofascial pain syndrome lumbar area 3-lumbar spondylosis facet arthropathy Postoperative diagnosis=Same as preop Diagnosis . Complication = none Condition= stable Anesthesia= moderate sedation with intravenous Versed 2 mg , and fentanyl 50 micrograms . Indication for the procedure= patient complaining of low back pain , examination was positive for severe tenderness over the left iliolumbar ligament and patient diagnosed with iliolumbar ligament neuralgia exam was positive for multiple trigger point identified in the left side lumbar paraspinal muscles. Description of the procedure= procedure risk and benefits discussed with the patient, including but not limited, risk of infection and bleeding, and ALLERGIC reaction to the medication and not complete pain relief and patient agreed with the preceding patient taken to the operating room, placed in prone position or standard monitors applied to the patient then after induction of anesthesia back prepped with chlorhexidine 3 times , Under fluoroscopy guidance local infiltration of the skin and subcu interstitial with the ropivacaine 0.5% 1 ml and using 25-gauge Needle advanced slowly under fluoroscopy and placed at the middle of the distance between the L5 transverse process and the sacral alae on the left side, she is the location of the left iliolumbar ligament then after negative aspiration bupivacaine 0.5% 2 mL and 40 mg of Depo-Medrol mixed with her and injected after negative aspiration, she tolerated the procedure well without any complications ,and after that the trigger point which was identified in the preop holding area ,3 trigger point identified each one of them injected with ropivacaine 0.5% ,2 mL using 25-gauge needle injection done ,after negative aspiration, and there was no paresthesia during the injection patient tolerated the procedure well without any complications and she will follow up in the pain clinic in a few weeks.
[2021-03-06 09:32] VITALS: BP 139/80; PULSE 67; RESP 12
--- NOTE | 2021-03-06 09:43 | FL ---
Fluoroscopy HISTORY: Pain 4 seconds fluoroscopy time supplied to the referring clinician. 1 intraoperative C-arm images docume nt the procedure. See dictated report from anesthesia.
== END 2021-03-06 09:59 | disposition home or self-care (01) ==
LOC: ORPAIN 08:17
PROVIDERS: ATTEND Specialist
DX: G58.8 Other specified mononeuropathies (principal); M79.18 Myalgia, other site; M47.816 Spondylosis without myelopathy or radiculopathy, lumbar region
CPT/HCPCS: 77002; 20553; 20550; J2250; J1030; J3010; J2795

== ENCOUNTER → 2021-03-20 | Outpatient (CLI) | payer MEDICARE, OTHER ==
[2021-03-20 11:21] VITALS: BP 148/88; PULSE 69; RESP 18; TEMP 97.6
--- NOTE | 2021-03-20 11:40 | P.PAINPG ---
Subjective Progress Note Date: 03/20/21 Principal diagnosis: Lumbar back pain Mrs. Bran is a 75 year old pleasant female patient came to [facility] pain management clinic for follow-up. Patient described pain started many years ago. Patient had left side lumbar paraspinal trigger point injections, and left iliolumbar ligament injection done on 03/06/2021. Patient had more than 50% pain relief after the procedure. The procedure is still helping her. With the help of procedure she can able to perform her activities well at home. Patient described pain as aching, sharp, throbbing type of pain. Patient rated pain 3 out of 10 in severity. Which may very her pain level from 3-7 out of 10 in severity. Patient lumbar back pain is not radiating to her lower extremities.. Pain increases with activities, and standing, walking, sitting, bending forward, and lifting. Pain decreases with interventional procedures and Tylenol. Overall patient activities- stable . Intervention procedures, stretching helping to some extent. Because of the pain patient is feeling lack of sleep and interest and energy sometimes. Denied any bowel or bladder problems. Patient denies any adverse effects to medications. Not using any walking aids for walking. Patient denied any suicidal or homicidal ideations intent or plan. At this time patient also denies any auditory or visual hallucinations. There are no signs of narcotic diversion/misuse/overuse and no new-onset weakness, bowel/bladder incontinence, saddle anesthesia, or no red flag symptoms. Objective - Vital Signs Vital signs: Vital Signs Temp 97.6 F 03/20/21 11:18 Pulse 69 03/20/21 11:18 Resp 18 03/20/21 11:18 BP 148/88 03/20/21 11:18 Pulse Ox 99 03/20/21 11:18 - Exam General: Well-developed, well-nourished, no acute distress HEENT: Normocephalic, and atraumatic Neck: Supple, no neck swelling Psychiatric: Appropriate mood, and affect RELAY OPERATOR: No focal neurological deficits Musculoskeletal: Upper extremity: Normal strength, and range of motion. Sensation grossly intact Lower extremity: Normal strength, and decreased range of motion secondary to pain Lumbar spine: Paravertebral tenderness: positive Lumbar facet load test : positive Sacroiliac joint tenderness: Negative Multiple trigger points positive lower lumbar area and tenderness over the iliolumbar ligament area on the left side. - Constitutional Constitutional Comment(s): 13 point review of symptoms negative except as mentioned in the history of present illness. Assessment and Plan Assessment: Lumbar spondylosis without myelopathy Myofascial pain syndrome Plan: #1 Diagnoses, prognosis, and multiple treatment options including but not limited to physical therapy, interventional therapy, adjunct medication therapy, narcotic medication, and surgical options were discussed with the patient. And all questions were answered to the patient's satisfaction. #2 treatment plan agreement : Patient was thoroughly discussed regarding the treatment options, alternatives, and importance of exercises as tolerated. Patient clearly understood. #3 Patient was counseled on importance of regular exercise. Including gloria chi, aerobic exercises as tolerated. Which helps for chronic pain, and overall well- being. #4 investigations: MAPS- reviewed , urine drug test-not done #5 diagnostic tests: None #6 consultation : None # 7 interventional procedures: Left-sided lumbar paraspinal, and left side ilio lumbar ligament injection. Procedure, complications, alternatives discussed with the patient. Patient is going for [place] to stay with her son during winter. #8 medications None from the pain clinic #9 morphine milligrams equivalents dose ( MME) per day: 0 from the pain clinic. # 10 : Patient recommended to try TENS unit's, and percussion massage device #11 disposition: scheduled to follow up with pain clinic in 12-16 weeks duration. Time with Patient: Less than 30 PQRS Measure Charge Sheet Measure #130: Documentation of Current Meds in Medical Chart: Patient's medications documented in chart Measure #226: Tobacco Use: Screen & Cessation Intervention: Pt not a tobacco user Measure #111: Pneumonia Vaccination: Pneumococcal vaccine administered or previ ously received Measure #47: Advance Care Plan: Advance care planning discussed & documented, plan or surrogate given Measure #412: Opioid Treatment Agreement: No documentation of signed opioid treatment agreement Measure #408: Opioid Therapy Follow-up Evaluation: Patient had NO f/u eval minimum every 3 months during opioid therapy Measure #317: Preventitive Care & Scrn High Bld Press & F/U: Pre-hypertensive or hypertensive BP documented, pt will f/u with PCP Measure #128: Body Mass Index (BMI) Screening & Follow-up: BMI documented within normal parameters Measure #131: Pain Assessment & Follow-up: Pain positive & plan documented Measure #431: Unhealthy Alcohol Use Preventative Care & Scrn: Patient not identified as an unhealthy alcohol user Mode of Arrival: Ambulatory - Pain Location Lower Back Non-Pharmacological Interventions: Home Exercise, Inactivity, Physical Therapy, Stretching Pharmacological Interventions: Block, PRN Medication PQRS Narrative: Smoking Status Never smoker Blood Pressure 148/88 Pain Intensity [Lower Back] 4 Scale Used Numeric (1 - 10) Hx Alcohol Use (MH) No Home Medications: Ambulatory Orders Aspirin [Adult Low Dose Aspirin EC] 81 mg PO DAILY 10/13/17 Doxazosin [Cardura] 2 mg PO QAM 10/13/17 Simvastatin [Zocor] 40 mg PO HS 10/13/17 atenoloL [Tenormin] 25 mg PO HS 10/13/17 Furosemide [Lasix] 20 mg PO DAILY 01/16/19 Lisinopril [Prinivil] 10 mg PO QAM 01/16/19 Montelukast [Singulair] 10 mg PO DAILY PRN 01/16/19 Calcium Citrate/Vitamin D3 [Citracal + D Maximum Caplet] 1 each PO BID 11/21/20 Cranberry Fruit Extract [Cranberry] 200 mg PO BID 11/21/20 Vit C/E/Zn/Coppr/Lutein/Zeaxan [Preservision Areds 2 Softgel] 1 each PO BID 11/21/20 polyethylene glycoL 3350 [Miralax] 17 gm PO DAILY PRN 01/15/21 Controlled Substance Measures - Controlled Substance Measures Is patient prescribed a controlled substance at discharge?: No
== END | disposition home or self-care (01) ==
LOC: PNWHC3 11:06
DX: M47.816 Spondylosis without myelopathy or radiculopathy, lumbar region (principal); M79.18 Myalgia, other site
CPT/HCPCS: 99211

== ENCOUNTER 2021-07-31 07:55 | Day surgery (SDC) | payer MEDICARE, OTHER ==
[2021-07-29 15:13] VITALS: BMI 23.6
[~2021-07-31 07:55] MED LIST changes: +LIDOCAINE 1% (10MG/ML) FOR IV START INTRADERMA PRN
[2021-07-31 08:13] VITALS: TEMP 96.9
[2021-07-31] MEDS ORDERED: ROPIVACAINE 5MG/ML 20ML VIAL ONE (08:36)
[2021-07-31] MEDS ORDERED: fentaNYL (PF) 50 MCG/ML 2 ML AMP ONE (08:36)
[2021-07-31] MEDS ORDERED: MIDAZOLAM 2 MG/2 ML VIAL ONE (08:36)
[2021-07-31] MEDS ORDERED: methylPREDNISolone ACETATE 40 MG/ML 1 ML VIAL ONE (08:36)
--- NOTE | 2021-07-31 08:53 | P.PCN ---
Date of Procedure: 07/31/21 Procedure(s) Performed: Procedure= 1-left iliolumbar ligament steroid injection under fluoroscopy guidance (fluoroscopy image stored on file in the radiology Department ). 2-trigger point injection left side lumbar paraspinal muscles total of 5 trigger point injected. Preoperative diagnosis= 1-left iliolumbar ligament neuralgia. 2-myofascial pain syndrome lumbar area. 3-lumbar spondylosis with lumbar facet arthropathy Postoperative diagnosis=Same as preop Diagnosis . Complication = none Condition= stable Anesthesia= moderate sedation with intravenous Versed 1 mg , and fentanyl 50 micrograms . Indication for the procedure= patient complaining of low back pain , examination was positive for severe tenderness over the left iliolumbar ligament and patient diagnosed with iliolumbar ligament neuralgia exam was positive for multiple trigger point identified in the left side lumbar paraspinal muscles. Description of the procedure= procedure risk and benefits discussed with the patient, including but not limited, risk of infection and bleeding, and ALLERGIC reaction to the medication and not complete pain relief and patient agreed with the preceding patient taken to the operating room, placed in prone position or standard monitors applied to the patient then after induction of anesthesia back prepped with chlorhexidine 3 times , Under fluoroscopy guidance local infiltration of the skin and subcu interstitial with the ropivacaine 0.5% 1 ml and using 25-gauge Needle advanced slowly under fluoroscopy and placed at the middle of the distance between the L5 transverse process and the sacral alae on the left side, she is the location of the left iliolumbar ligament then after negative aspiration Ropivacaine 0.5% 2 mL and 40 mg of Depo-Medrol mixed with her and injected after negative aspiration, she tolerated the procedure well without any complications ,and after that the trigger point which was identified in the preop holding area ,5 trigger point identified each one of them injected with ropivacaine 0.5% ,2 mL using 25-gauge needle injection done ,after negative aspiration, and there was no paresthesia during the injection patient tolerated the procedure well without any complications and she will follow up in the pain clinic in a few weeks.
[2021-07-31] MEDS ORDERED: IV FLUID CONTINUATION 800 ML IV ONE (08:56)
[2021-07-31 09:01] VITALS: RESP 20
[2021-07-31 09:11] VITALS: BP 129/80; PULSE 68
--- NOTE | 2021-07-31 09:27 | FL ---
EXAMINATION TYPE: FL guided pain mgmt statistic DATE OF EXAM: 07/31/2021 HISTORY: Fluoroscopy time 2 seconds of fluoroscopy provided. IMPRESSION: 1. Fluoroscopy time.
== END 2021-07-31 09:26 | disposition home or self-care (01) ==
LOC: ORPAIN 07:55
PROVIDERS: ATTEND Specialist
DX: M47.26 Other spondylosis with radiculopathy, lumbar region (principal); M79.18 Myalgia, other site
CPT/HCPCS: 20550; 20553; J2250; J1030; J3010; J2795; 99152

== ENCOUNTER → 2021-08-21 | Outpatient (CLI) | payer MEDICARE, OTHER ==
[2021-08-21 11:56] VITALS: BP 141/92; PULSE 67; RESP 18; TEMP 98
--- NOTE | 2021-08-21 12:20 | P.PN ---
Subjective Progress Note Date: 08/21/21 Principal diagnosis: A 76 yr old female with a history of severe and chronic low back pain secondary to lumbar degenerative disc diseases and lumbar spondylosis with facet arthropathy presents today for evaluation status post left iliolumbar ligament injection with left lumbar TPI #2. Patient states she experienced 40% pain relief status post procedure. Pain level is currently at 7 out of 10 in intensity, dull, achy in the lower lumbar aspects of the spine where it meets the tailbone, left side greater than right. Pain escalates as high as 10 out of 10 with bending, twisting and lifting. Pain is relieved with medications (Tylenol OTC), injections, heat, physical therapy which provided no relief, daily home stretching regimen, and rest. Interventional pain procedures completed include Lumbar RFA, L Ilioligament & L Lumbar TPI x 2. Patient is currently on Tylenol OTC Patient denies any side effects of the medication(s), denies excessive drowsiness or sleepiness, denies suicidal ideation and reports that the current pain medication is helping to control the pain and improve activities of daily living. Patient denies any motor or sensory deficits. Patient denies any fever or night sweats, denies any change in the bowel movements or urination. Physical Examination: -Constitutional: Cooperative. Not in acute distress . -HEENT: Neck is supple. No lymphadenopathy. No thyromegaly. Normal thyroid size. Eyes: No ptosis , no icterus, no photophobia. ENT: No auditory deficits. Normal oropharynx. No Thrush. - Respiratory: Chest clear to auscultations bilaterally. No wheezing. No rhonchi. - Cardiovascular: Regular rate and rhythm. S1 / S2 , no S3 , no S4. - Gastrointestinal: Abdomen soft no tenderness. Bowel sounds positive in all four quadrants. No organomegaly. - Genitourinary: Deferred. - Neurologic: Cranial nerve II to XII intact. No focal neurological deficits. - Psychatric: Alert & oriented x 3. Matching mood & appropriate affect. Judgment and insight intact. - Lymphatic: No Lymphadenopathy. - Musculoskeletal: Cervical spine: Muscle bulk/ tone/ strength in the bilateral upper extremities normal. Facet loading test cervical area positive. Lumbar spine: Motor bulk/ tone/ strength lower extremities , thigh and legs : 5/5 Deep tendon reflexes : Normal Knee Jerk. Normal Ankle Jerk . Vertebral body tenderness to palpation over Lumbar Facet Loading Test positive Straight Leg Raise: positive at 30 degrees right side/ left side Gaenslen's Test positive Sacral spine : Severe tenderness over the Sacroiliac joint: right side / left side Range of motion: Flexion of the lumbar spine <60 degrees Range of motion: Extension of the lumbar spine <20 degrees Gaenslen's Test positive Derrick test: positive right side< left side Assessment and plan: Chronic low back pain secondary to lumbar degenerative disc disease , lumbar spondylosis with facet arthropathy without myelopathy Recommendation of bilateral SI joint injection. May need a series of injections Every 3 months if necessary for optimal pain relief. Risks, benefits of procedure discussed and patient verbalized understanding. Denies anticoagulant use. Denies medical history of diabetes. All patient questions answered MAPS reviewed and it was appropriate. Diclofenac gel, apply to AA BID prn, Disp 1 tube w 1 refill. I have spent 31 minutes on patient care today. Dr Schroeder was available by phone for the evaluation of this patient. The time was used to review the medical records including relevant urine studies and Prescription history (MAPs), review of the available imaging, evaluation and examination of the patient, coordination of care with the medical staff and if applicable referring physicians, as well as creation of the medical record Objective - Vital Signs Vital signs: Vital Signs Temp 98.0 F 08/21/21 11:36 Pulse 67 08/21/21 11:36 Resp 18 08/21/21 11:36 BP 141/92 08/21/21 11:36 Pulse Ox 99 08/21/21 11:36 Intake & Output 08/20/21 08/21/21 08/21/21 18:59 06:59 18:59 Weight 54.885 kg PQRS Measure Charge Sheet Mode of Arrival: Ambulatory - Pain Location Left Lower Back Non-Pharmacological Interventions: Heat, Home Exercise, Inactivity, Position/Reposition, Stretching PQRS Narrative: Smoking Status Never smoker Blood Pressure 141/92 Pain Intensity [Left Lower 7 Back] Scale Used Numeric (1 - 10) Hx Alcohol Use (MH) No Home Medications: Ambulatory Orders Aspirin [Adult Low Dose Aspirin EC] 81 mg PO DAILY 10/13/17 Doxazosin [Cardura] 2 mg PO QAM 10/13/17 Simvastatin [Zocor] 40 mg PO HS 10/13/17 atenoloL [Tenormin] 25 mg PO HS 10/13/17 Furosemide [Lasix] 20 mg PO DAILY 01/16/19 Lisinopril [Prinivil] 10 mg PO QAM 01/16/19 Montelukast [Singulair] 10 mg PO DAILY 01/16/19 Calcium Citrate/Vitamin D3 [Citracal + D Maximum Caplet] 1 each PO BID 11/21/20 Cranberry Fruit Extract [Cranberry] 200 mg PO BID 11/21/20 Vit C/E/Zn/Coppr/Lutein/Zeaxan [Preservision Areds 2 Softgel] 1 each PO BID 11/21/20 polyethylene glycoL 3350 [Miralax] 17 gm PO DAILY PRN 01/15/21
== END | disposition home or self-care (01) ==
LOC: PNWHC3 11:00
PROVIDERS: ATTEND Specialist
DX: M51.36 Other intervertebral disc degeneration, lumbar region (principal); M46.96 Unspecified inflammatory spondylopathy, lumbar region; M47.896 Other spondylosis, lumbar region
CPT/HCPCS: 99211

== ENCOUNTER 2021-11-06 07:29 | Day surgery (SDC) | payer MEDICARE, OTHER ==
[2021-10-01 13:16] VITALS: BMI 24.4
[2021-11-06 08:22] VITALS: RESP 16; TEMP 97.5
[2021-11-06] MEDS ORDERED: ROPIVACAINE 5MG/ML 20ML VIAL ONE (08:57)
[2021-11-06] MEDS ORDERED: fentaNYL (PF) 50 MCG/ML 2 ML AMP ONE (08:57)
[2021-11-06] MEDS ORDERED: MIDAZOLAM 2 MG/2 ML VIAL ONE (08:57)
[2021-11-06] MEDS ORDERED: methylPREDNISolone ACETATE 40 MG/ML 1 ML VIAL ONE (08:57)
--- NOTE | 2021-11-06 09:15 | P.PCN ---
Date of Procedure: 11/06/21 Procedure(s) Performed: Procedure= bilateral sacroiliac joints steroid injection under fluoroscopy guidance (fluoroscopy image stored on file in the radiology Department ) Preoperative diagnosis= 1-sacroiliitis 2-lumbar degenerative disc disease 3- lumbar facet arthropathy Postoperative diagnosis=Same as preop Diagnosis . Complication = none Condition= stable Anesthesia= moderate sedation with intravenous Versed 1 mg , and fentanyl 50 micrograms . Indication for the procedure= patient complaining of low back pain , examination was positive for severe tenderness over the sacroiliac joints bilaterally and patient diagnosed with sacroiliitis, for this reason ,she was good candidate for sacroiliac joint steroid injection. Description of the procedure= procedure risk and benefits discussed with the patient, including but not limited, risk of infection and bleeding, and ALLERGIC reaction to the medication and not complete pain relief and patient agreed with the preceding patient taken to the operating room, placed in prone position or standard monitors applied to the patient then after induction of anesthesia back prepped with chlorhexidine 3 times , Then under strict sterile technique, first I did the right sacroiliac joint the which was identified under fluoroscopy guidance been local infiltration of the skin and subcu interstitial with lidocaine 1% then 22-gauge Quincke Needle advanced slowly under fluoroscopy and placed in the right sacroiliac joint needle placement confirmed with AP and oblique and lateral view and after appropriate needle placement confirmed and after negative aspiration, or heme , then Ropivacaine 0.5% 4 mL, and 20 mg of Depo-Medrol mixed together and injected in the right sacroiliac joint after negative aspiration patient tolerated the procedure well without any complication. Then the left sacroiliac joint steroid injection done under strict sterile technique local infiltration of the skin and subcu interstitial at the location of the left sacroiliac joint then a 22-gauge Quincke Needle advanced slowly under fluoroscopy time placed in the left sacroiliac joint, needle placement confirmed with AP and oblique and lateral view then after appropriate needle placement confirmed and after negative aspiration 0.5% Ropivacaine 4 mL and 20 m g of Depo-Medrol injected in the left sacroiliac joint after negative aspiration patient tolerated the procedure well that any complications and she will follow up in clinic 3 weeks
[2021-11-06] MEDS ORDERED: IV FLUID CONTINUATION 1,000 ML IV ONE (09:19)
--- NOTE | 2021-11-06 09:25 | FL ---
EXAMINATION TYPE: FL guided pain mgmt statistic DATE OF EXAM: 11/06/2021 HISTORY: Fluoroscopy time 10 seconds of fluoroscopy provided. IMPRESSION: 1. Fluoroscopy time.
[2021-11-06 09:38] VITALS: BP 138/83; PULSE 55
== END 2021-11-06 10:00 | disposition home or self-care (01) ==
LOC: ORPAIN 07:29
PROVIDERS: ATTEND Specialist
DX: M46.1 Sacroiliitis, not elsewhere classified (principal); M51.36 Other intervertebral disc degeneration, lumbar region; M47.816 Spondylosis without myelopathy or radiculopathy, lumbar region; Z88.8 Allergy status to other drugs, medicaments and biological substances
CPT/HCPCS: J2250; J1030; J3010; J2795; G0260; 99152

== ENCOUNTER → 2021-11-24 | Outpatient (CLI) | payer MEDICARE, OTHER ==
[2021-11-24 11:39] VITALS: BP 124/85; PULSE 61; RESP 18; TEMP 98.4
--- NOTE | 2021-11-24 14:26 | P.PAINPG ---
PQRS Measure Charge Sheet Comment: A 76 yr old female with a history of severe and chronic low back pain secondary to BL sacroiliitis presents today for evaluation s/p BL SI joint injections. Pt states she experienced 30% pain relief x 7 days s/p procedure. Pain level is currently at 8/10 in intensity, localized to L lower back with radiation of pain towards her L glutes and L inner groin, constant, tight/ sore in character. Pain is provoked by standing for periods of 15 min or more, lifting and twisting. Pain is alleviated with PT 6 mo ago, home based exercise regimen with walking 15 min daily on a treadmill, use of a massage gun, topicals, repositioning and rest. Interventional pain procedures completed include BL SI injections, L RFA L2-L5 x 2 Patient is currently on Volataren gel Patient denies any side effects of the medication(s), denies excessive drowsiness or sleepiness, denies suicidal ideation and reports that the current pain medication is helping to control the pain and improve activities of daily living. Patient denies any motor or sensory deficits. Patient denies any fever or night sweats, denies any change in the bowel movements or urination. Physical Examination: -Constitutional: Cooperative. Not in acute distress . - Neurologic: Cranial nerve II to XII intact. No focal neurological deficits. - Psychatric: Alert & oriented x 3. Matching mood & appropriate affect. Judgment and insight intact. - Musculoskeletal: Cervical spine: Muscle bulk/ tone/ strength in the bilateral upper extremities normal Vertebral body tenderness to palpation over Spurling test positive Distraction test positive Facet loading test positive Thoracic spine Muscle bulk / tone/ strength in the bilateral paraspinal muscles normal Vertebral body tender to palpation over Facet loading test positive Lumbar spine: Motor bulk/ tone/ strength lower extremities , thigh and legs : 5/5 Deep tendon reflexes : Normal Knee Jerk. Normal Ankle Jerk . Vertebral body tenderness to palpation over Lumbar Facet Loading Test positive over L L4-L5, L5-S1 w accompanying paraspinal TTP Straight Leg Raise: positive at 30 degrees right side/ left side Gaenslen's Test positive Sacral spine : Severe tenderness over the Sacroiliac joint: right side / left side Range of motion: Flexion of the lumbar spine <60 degrees Range of motion: Extension of the lumbar spine <20 degrees Gaenslen's Test positive Thomas's Test positive Derrick test: positive right side / left side Thigh Thrust Test Sacral Thrust Test Assessment and plan: Chronic low back pain secondary to BL Sacroiliitis Recommendation of L RFA L4-L5, L5-S1. Pt did not exhibit sufficient pain relief with the BL SI joint injections. Risks, benefits of procedure discussed and pt verbalized understanding. Admits to anticoagulant use and denies medical history of diabetes. Protocol for discontinuation/ continuation of medications cecile procedure discussed. All patient questions answered MAPS reviewed and it was appropriate. I have spent less than 30 minutes on patient care today. Dr Schroeder was available by phone for the evaluation of this patient. The time was used to review the medical records including relevant urine studies and Prescription history (MAPs), review of the available imaging, evaluation and examination of the patient, coordination of care with the medical staff and if applicable referring physicians, as well as creation of the medical record PQRS Narrative: Smoking Status Never smoker Hx Alcohol Use (MH) No Home Medications: Ambulatory Orders Aspirin [Adult Low Dose Aspirin EC] 81 mg PO DAILY 10/13/17 Doxazosin [Cardura] 2 mg PO QAM 10/13/17 Simvastatin [Zocor] 40 mg PO HS 10/13/17 atenoloL [Tenormin] 25 mg PO HS 10/13/17 Furosemide [Lasix] 20 mg PO DAILY 01/16/19 Montelukast [Singulair] 10 mg PO DAILY 01/16/19 lisinopriL [Prinivil] 10 mg PO QAM 01/16/19 Calcium Citrate/Vitamin D3 [Citracal + D Maximum Caplet] 1 each PO BID 11/21/20 Cranberry Fruit Extract [Cranberry] 200 mg PO BID 11/21/20 Vit C/E/Zn/Coppr/Lutein/Zeaxan [Preservision Areds 2 Softgel] 1 each PO BID 11/21/20 polyethylene glycoL 3350 [Miralax] 17 gm PO DAILY PRN 01/15/21 Diclofenac Sodium Gel [Voltaren Gel] 100 gm TOPICAL BID PRN 10/01/21 Controlled Substance Measures - Controlled Substance Measures Is patient prescribed a controlled substance at discharge?: No
== END | disposition home or self-care (01) ==
LOC: PNWHC3 10:51
PROVIDERS: ATTEND Specialist
DX: M46.1 Sacroiliitis, not elsewhere classified (principal)
CPT/HCPCS: 99211

== ENCOUNTER 2022-01-02 07:40 | Day surgery (SDC) | payer MEDICARE, OTHER ==
[2022-01-01 11:26] VITALS: BMI 24.6
[2022-01-02 08:09] VITALS: TEMP 97.5
[2022-01-02] MEDS ORDERED: LACTATED RINGERS 1,000 ML IV ONE (08:17)
[2022-01-02] MEDS ORDERED: MIDAZOLAM 2 MG/2 ML VIAL ONE (08:29)
[2022-01-02] MEDS ORDERED: ROPIVACAINE 5 MG/ML 20 ML AMPULE ONE (08:29)
[2022-01-02] MEDS ORDERED: TRIAMCINOLONE ACETONIDE 40 MG/ML 1 ML VIAL ONE (08:29)
[2022-01-02] MEDS ORDERED: fentaNYL (PF) 50 MCG/ML 2 ML AMP ONE (08:29)
[2022-01-02] MEDS ORDERED: LACTATED RINGERS 1,000 ML IV SCH (08:30)
--- NOTE | 2022-01-02 08:53 | P.PCN ---
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 Procedure: Left side L4-5 radiofrequency thermocoagulation of medial branch under fluoroscopic guidance Left side L5-S1 dorsal ramus radiofrequency thermocoagulation under fluoroscopic guidance Surgeon: Rashawn Jacobo Anesthesia: Local: 1% Lidocaine, IV sedation : Midazolam 2 mg, and fentanyl 100 micrograms. Complications: None Estimated blood loss: None. Specimen removed: None Fluoroscopic image: Saved to patient electronic medical records. Indications for Procedure: The patient is well known to pain clinic for his chronic low back pain management. The lumbar facet loading test was positive with a clinical diagnosis of lumbar facet arthropathy. Patient had marked decrease in pain after the diagnostic medial branch procedure. Came here for radiofrequency ablation for longer pain relief. PROCEDURE DESCRIPTION: The patient was seen and identified in the preoperative area. Risks, benefits, complications, and alternatives were discussed with the patient. The patient agreed to proceed with the procedure and signed the consent. IV was started. Vital signs were stable. Patient was taken to the procedure room and timeout was completed. The patient was placed in the prone position on procedure table and a pillow was placed under the abdomen to reduce lumbar lordosis. The lumbosacral area was prepped and draped in the usual sterile fashion. Critical pause was taken. Vital signs were closely monitored during the procedure. The fluoroscopic camera was placed in the anteroposterior position to identify the junction of superior articular process and its corresponding injection with its transverse process of L4, L5, S1, which were anesthetized with 1% lidocaine. We used 18-gauge 100-mm curved, sharp radiofrequency cannula with 10- mm active tip for the procedure. The first cannula was guided by fluoroscopy to the S1 superior articular process and its corresponding junction with its ala. The second cannula was guided by fluoroscopy into the L5 superior articular process and its corresponding junction with its transverse process and pedicle. The third cannula was guided by fluoroscopy into the L4 SAP and its corresponding junction with its transverse process and its pedicle. After confirmation of needle tip position on oblique view, each site underwent motor testing at 2 Hz and 0 to 2.5 volts, and there was good motor stimulation in the back and no radicular symptoms or paresthesias. After confirmation of motor testing, 0.5 mL of block solution injected at each site . Block solution contained 2 mL of 0.5% ropivacaine preservative free mixed with 40 MG of Kenalog. At this time, each site was ablated using continuous radiofrequency mode at 80 degrees Celsius for 90 seconds at each level. At the end of the procedure, each needle was retracted approximately 1 cm and the skin was infiltrated with 0.5% ropivacaine preservative free 1 ml at each site. Skin was cleansed and bandages were applied. Disposition : The patient tolerated the procedure very well. The patient was transferred to the recovery room and remained stable until discharged home. The patient was given detailed discharge instructions for infection, bleeding, and increased pain at the injection site, and was advised to seek immediate medical attention should significant side effects develop. The patient will be scheduled with Pain Clinic within 4 weeks.
[2022-01-02] MEDS ORDERED: IV FLUID CONTINUATION 750 ML IV ONE (08:57)
[2022-01-02 09:05] VITALS: RESP 18
[2022-01-02 09:14] VITALS: BP 158/83; PULSE 60
--- NOTE | 2022-01-02 09:23 | FL ---
Intraoperative/procedural fluoroscopic services were provided. Total fluoroscopy time is 4 seconds wi th a total of 4 submitted images to PACS. Please see the operative/procedural note for further detail s.
== END 2022-01-02 09:30 | disposition home or self-care (01) ==
LOC: ORPAIN 07:40
DX: M47.816 Spondylosis without myelopathy or radiculopathy, lumbar region (principal); G89.29 Other chronic pain; I10 Essential (primary) hypertension; E78.5 Hyperlipidemia, unspecified; Z88.8 Allergy status to other drugs, medicaments and biological substances; K21.9 Gastro-esophageal reflux disease without esophagitis
CPT/HCPCS: 64635; 64636; J2250; J3301; J3010; J2795

== ENCOUNTER → 2022-02-11 | Outpatient (CLI) | payer MEDICARE, OTHER ==
[2022-02-11 12:25] VITALS: BP 121/82; PULSE 67; RESP 18; TEMP 98.1
--- NOTE | 2022-02-11 14:11 | P.PAINPG ---
Objective - Vital Signs Vital signs: Intake & Output 02/10/22 02/11/22 02/11/22 18:59 06:59 18:59 Weight 54.431 kg PQRS Measure Charge Sheet Comment: A 76 yr old female with a history of severe and chronic low back pain secondary to lumbar degenerative disc diseases and lumbar spondylosis with facet arthropathy without myelopathy presents today for evaluation s/p L RFA L4-L5, L5-S1. Pt states she experienced 50% pain rlief s/p procedure. Pain level is currently at 6/10 in intensity, constant, localized in L lower lumbar spine, sore achy in character w shooting towards the LLE. Pain is provoked by standing/ bending for periods of 10 min or more. Pain is alleviated with PT x 6 wks in September 2021, use of a massage ball at home, heated seats, meds (Tyl, Ibu, Voltaren gel), sitting, repositioning and rest. Interventional pain procedures completed include L RFA L3-L5, BL SI joint, TPIs Lumbar spine Patient is currently on Tylenol OTC, Ibuprofen OTC, Voltaren gel Patient denies any side effects of the medication(s), denies excessive drowsiness or sleepiness, denies suicidal ideation and reports that the current pain medication is helping to control the pain and improve activities of daily living. Patient denies any motor or sensory deficits. Patient denies any fever or night sweats, denies any change in the bowel movements or urination. Physical Examination: -Constitutional: Cooperative. Not in acute distress . - Neurologic: Cranial nerve II to XII intact. No focal neurological deficits. - Psychatric: Alert & oriented x 3. Matching mood & appropriate affect. Judgment and insight intact. - Musculoskeletal: Cervical spine: Muscle bulk/ tone/ strength in the bilateral upper extremities normal Vertebral body tenderness to palpation over Spurling test positive Distraction test positive Facet loading test positive Thoracic spine Muscle bulk / tone/ strength in the bilateral paraspinal muscles normal Vertebral body tender to palpation over Facet loading test positive Lumbar spine: Motor bulk/ tone/ strength lower extremities , thigh and legs : 5/5 Deep tendon reflexes : Normal Knee Jerk. Normal Ankle Jerk . Vertebral body tenderness to palpation over Lumbar Facet Loading Test positive over L L5 w palpation Straight Leg Raise: positive at 30 degrees right side/ left side Gaenslen's Test positive Sacral spine : Severe tenderness over the Sacroiliac joint: right side / left side Range of motion: Flexion of the lumbar spine <60 degrees Range of motion: Extension of the lumbar spine <20 degrees Gaenslen's Test positive Thomas's Test positive Derrick test: positive right side / left side Thigh Thrust Test Sacral Thrust Test Assessment and plan: Chronic low back pain secondary to lumbar degenerative disc disease , lumbar spondylosis with facet arthropathy without myelopathy Recommendation of L iliolumbar ligament injection. May need a series , up to 2 within a 4 mo time period, for optimal pain relief. Risks, benefits of procedure discussed and pt verbalized understanding. Denies anticoagulant use or medical history of diabetes. All patient questions answered I have spent less than 30 minutes on patient care today. Dr Schroeder was available by phone for the evaluation of this patient. The time was used to review the medical records including relevant urine studies and Prescription history (MAPs), review of the available imaging, evaluation and examination of the patient, coordination of care with the medical staff and if applicable referring physicians, as well as creation of the medical record - Pain Location Left Lower Back Non-Pharmacological Interventions: Physical Therapy Pharmacological Interventions: Block, PRN Medication, Topical Medication PQRS Narrative: Smoking Status Never smoker Pain Intensity [Left Lower 4 Back] Hx Alcohol Use (MH) No Home Medications: Ambulatory Orders Aspirin [Adult Low Dose Aspirin EC] 81 mg PO DAILY 10/13/17 Doxazosin [Cardura] 2 mg PO QAM 10/13/17 Simvastatin [Zocor] 40 mg PO HS 10/13/17 atenoloL [Tenormin] 25 mg PO HS 10/13/17 Furosemide [Lasix] 20 mg PO DAILY 01/16/19 Montelukast [Singulair] 10 mg PO DAILY 01/16/19 lisinopriL [Prinivil] 10 mg PO QAM 01/16/19 Calcium Citrate/Vitamin D3 [Citracal + D Maximum Caplet] 1 each PO BID 11/21/20 Cranberry Fruit Extract [Cranberry] 200 mg PO BID 11/21/20 Vit C/E/Zn/Coppr/Lutein/Zeaxan [Preservision Areds 2 Softgel] 1 each PO BID 11/21/20 polyethylene glycoL 3350 [Miralax] 17 gm PO DAILY PRN 01/15/21 Diclofenac Sodium Gel [Voltaren Gel] 100 gm TOPICAL BID PRN 10/01/21 Fluticasone Nasal [place] [Flonase Nasal [place]] 2 spray EA NOSTRIL DAILY PRN 01/01/22 Controlled Substance Measures - Controlled Substance Measures Is patient prescribed a controlled substance at discharge?: No
== END | disposition home or self-care (01) ==
LOC: PNWHC3 10:55
PROVIDERS: ATTEND Specialist
DX: M47.816 Spondylosis without myelopathy or radiculopathy, lumbar region (principal); M51.36 Other intervertebral disc degeneration, lumbar region; M46.96 Unspecified inflammatory spondylopathy, lumbar region
CPT/HCPCS: 99211

== ENCOUNTER 2022-03-26 07:41 | Day surgery (SDC) | payer MEDICARE, OTHER ==
[2022-03-25 09:15] VITALS: BMI 23.6
[2022-03-26 08:17] VITALS: RESP 16; TEMP 97.9
[2022-03-26] MEDS ORDERED: methylPREDNISolone ACETATE 40 MG/ML 1 ML VIAL ONE (08:31)
[2022-03-26] MEDS ORDERED: ROPIVACAINE 5 MG/ML 20 ML AMPULE ONE (08:31)
[2022-03-26] MEDS ORDERED: fentaNYL (PF) 50 MCG/ML 2 ML AMP ONE (08:31)
[2022-03-26] MEDS ORDERED: MIDAZOLAM 2 MG/2 ML VIAL ONE (08:31)
[2022-03-26] MEDS ORDERED: IV FLUID CONTINUATION 1,000 ML IV ONE (08:46)
--- NOTE | 2022-03-26 08:46 | P.PCN ---
Date of Procedure: 03/26/22 Procedure(s) Performed: Procedure= left iliolumbar ligament steroid injection under fluoroscopy guidance (fluoroscopy image stored on file in the radiology Department ) Preoperative diagnosis= 1-left iliolumbar ligament neurological 2-lumbar degenerative disc disease 3-lumbar facet arthropathy Postoperative diagnosis=Same as preop Diagnosis . Complication = none Condition= stable Anesthesia= moderate sedation with intravenous Versed 1 mg , and fentanyl 50 micrograms . Sedation start time: 0 834 Sedation end time : 0 841 Indication for the procedure= patient complaining of low back pain , examination was positive for severe tenderness over the left iliolumbar ligament and patient diagnosed with iliolumbar ligament neuralgia, she was good candidate for left iliolumbar ligament steroid injection. Description of the procedure= procedure risk and benefits discussed with the patient, including but not limited, risk of infection and bleeding, and ALLERGIC reaction to the medication and not complete pain relief and patient agreed with the preceding patient taken to the operating room, placed in prone position or standard monitors applied to the patient then after induction of anesthesia back prepped with chlorhexidine 3 times , Then under strict sterile technique, I did the left iliolumbar ligament, under fluoroscopy guidance , local infiltration of the skin and subcu interstitial with lidocaine 0.5% then 25-gauge Quincke Needle advanced slowly under fluoroscopy and placed middle of the distance between the transverse process of the L5-S1 and the sacral ala on the left side needle placement confirmed with AP and oblique and lateral view and after appropriate needle placement confirmed and after negative aspiration, or heme , then Ropivacaine 0.5% 4 mL, and 40 mg of Depo-Medrol mixed together and injected after negative aspiration patient tolerated the procedure well without any complication.
[2022-03-26 09:13] VITALS: BP 153/72; PULSE 71
--- NOTE | 2022-03-26 09:38 | FL ---
EXAMINATION TYPE: FL guided pain mgmt statistic DATE OF EXAM: 03/26/2022 HISTORY: Fluoroscopy time 1 seconds of fluoroscopy provided. IMPRESSION: 1. Fluoroscopy time.
== END 2022-03-26 09:16 | disposition home or self-care (01) ==
LOC: ORPAIN 07:41
PROVIDERS: ATTEND Specialist
DX: M47.817 Spondylosis without myelopathy or radiculopathy, lumbosacral region (principal); M51.36 Other intervertebral disc degeneration, lumbar region
CPT/HCPCS: 20550; J2250; J1030; J3010; J2795

== ENCOUNTER → 2022-04-16 | Outpatient (CLI) | payer MEDICARE, OTHER ==
[2022-04-16 11:06] VITALS: BP 124/81; PULSE 74; RESP 18; TEMP 97.9
--- NOTE | 2022-04-16 14:45 | P.PAINPG ---
PQRS Measure Charge Sheet Comment: A 76 yr old female with a history of severe and chronic low back pain secondary to lumbar DDD and spondylosis with facet arthropathy without myelopathy presents today for evaluation s/p L iliolumbar injection. Pt states she experienced 90 % pain relief x 3 wks s/p procedure. Pain level is currently at 7 /10 in intensity, constant, localized in L lower lumbar spine, dull/ achy in character w shooting towards L glutes. Pain is provoked by bending. Pain is alleviated with PT in 2020, home exercise as tolerated, topicals and rest. Interventional pain procedures completed include BL RFA L3-L5, L iliolumbar injection Patient is currently on Voltaren Gel prn Patient denies any side effects of the medication(s), denies excessive drowsiness or sleepiness, denies suicidal ideation and reports that the current pain medication is helping to control the pain and improve activities of daily living. Patient denies any motor or sensory deficits. Patient denies any fever or night sweats, denies any change in the bowel movements or urination. Physical Examination: -Constitutional: Cooperative. Not in acute distress . - Neurologic: Cranial nerve II to XII intact. No focal neurological deficits. - Psychatric: Alert & oriented x 3. Matching mood & appropriate affect. Judgment and insight intact. - Musculoskeletal: Cervical spine: Muscle bulk/ tone/ strength in the bilateral upper extremities normal Vertebral body tenderness to palpation over Spurling test positive Distraction test positive Facet loading test positive Thoracic spine Muscle bulk / tone/ strength in the bilateral paraspinal muscles normal Vertebral body tender to palpation over Facet loading test positive Lumbar spine: Motor bulk/ tone/ strength lower extremities , thigh and legs : 5/5 Deep tendon reflexes : Normal Knee Jerk. Normal Ankle Jerk . Vertebral body tenderness to palpation over Lumbar Facet Loading Test positive Straight Leg Raise: positive at 30 degrees right side/ left side Gaenslen's Test positive Sacral spine : Severe tenderness over the Sacroiliac joint: right side / left side Range of motion: Flexion of the lumbar spine <60 degrees Range of motion: Extension of the lumbar spine <20 degrees Gaenslen's Test positive on L Derrick test: positive right side / left side Thigh Thrust Test L Sacral Thrust Test Assessment and plan: Chronic low back pain secondary to lumbar degenerative disc disease, spondylosis with facet arthropathy without myelopathy Recommendation of L SI injection. May need a series, up to every 3 mo, for optimal pain relief. Risks, benefits of procedure discussed and pt verbalized understanding. Admits to anticoagulant use or medical history of diabetes. Protocol for discontinuation/ continuation of medications cecile procedure discussed. All patient questions answered I have spent less than 30 minutes on patient care today. Dr Schroeder was available by phone for the evaluation of this patient. The time was used to review the medical records including relevant urine studies and Prescription history (MAPs), review of the available imaging, evaluation and examination of the patient, coordination of care with the medical staff and if applicable referring physicians, as well as creation of the medical record PQRS Narrative: Smoking Status Never smoker Hx Alcohol Use (MH) No Home Medications: Ambulatory Orders Aspirin [Adult Low Dose Aspirin EC] 81 mg PO DAILY 10/13/17 Doxazosin [Cardura] 2 mg PO QAM 10/13/17 Simvastatin [Zocor] 40 mg PO HS 10/13/17 atenoloL [Tenormin] 25 mg PO HS 10/13/17 Furosemide [Lasix] 20 mg PO DAILY 01/16/19 Montelukast [Singulair] 10 mg PO DAILY 01/16/19 lisinopriL [Prinivil] 10 mg PO QAM 01/16/19 Calcium Citrate/Vitamin D3 [Citracal + D Maximum Caplet] 1 each PO BID 11/21/20 Cranberry Fruit Extract [Cranberry] 200 mg PO BID 11/21/20 Vit C/E/Zn/Coppr/Lutein/Zeaxan [Preservision Areds 2 Softgel] 1 each PO BID 11/21/20 polyethylene glycoL 3350 [Miralax] 17 gm PO DAILY PRN 01/15/21 Diclofenac Sodium Gel [Voltaren Gel] 100 gm TOPICAL BID PRN 10/01/21 Fluticasone Nasal [place] [Flonase Nasal [place]] 2 spray EA NOSTRIL DAILY PRN 01/01/22 Controlled Substance Measures - Controlled Substance Measures Is patient prescribed a controlled substance at discharge?: No
== END ==
LOC: PNWHC3 10:34
PROVIDERS: ATTEND Specialist
DX: M47.816 Spondylosis without myelopathy or radiculopathy, lumbar region (principal); M51.36 Other intervertebral disc degeneration, lumbar region; G89.29 Other chronic pain; Z79.82 Long term (current) use of aspirin; Z88.8 Allergy status to other drugs, medicaments and biological substances
CPT/HCPCS: 99211

== ENCOUNTER → 2022-10-09 | Outpatient (CLI) | payer MEDICARE, OTHER ==
--- NOTE | 2022-10-12 09:24 | MM ---
Reason for Exam: Screening (asymptomatic). Last mammogram was performed 1 year(s) and 1 month(s) ago. Patient History: Menarche at age 9. First Full-Term at age 18. Left ovary removed at age 33. Hysterectomy at age 33. Postmenopausal. Risk Values: Geovanna 5 year model risk: 1.7%. NCI Lifetime model risk: 2.8%. Prior Study Comparison: 03/14/2019 Bilateral Screening Mammogram, [facility]. 09/03/2020 Bilateral Screening Mammogram, [facility]. 09/16/2021 Bilateral Screening Mammogram, [facility]. Tissue Density: The breast tissue is heterogeneously dense. This may lower the sensitivity of mammography. Findings: Analyzed By CAD. There is no suspicious group of microcalcifications or new suspicious mass in either breast. Benign round calcifications within both breasts. Overall Assessment: Benign, BI-RAD 2 Management: Screening Mammogram of both breasts in 1 year. A clinical breast exam by your physician is recommended on an annual basis and results should be correlated with mammographic findings. Electronically signed and approved by: Luc Garcia D.O.
== END | disposition home or self-care (01) ==
LOC: RADMAMWWP 13:20
PROVIDERS: ATTEND Obstetrics & Gynecology
DX: Z12.31 Encounter for screening mammogram for malignant neoplasm of breast (principal); Z78.0 Asymptomatic menopausal state
CPT/HCPCS: 77063; 77067

== ENCOUNTER 2023-02-23 09:00 | Day surgery (SDC) | payer MEDICARE, OTHER ==
[2023-02-16 14:50] VITALS: BMI 23.8
[2023-02-23 10:57] VITALS: TEMP 97.2
[2023-02-23] MEDS ORDERED: IV FLUID CONTINUATION 1,000 ML IV ONE (11:28)
[2023-02-23] MEDS ORDERED: PROPOFOL 10 MG/ML 20 ML VIAL IV ONE (11:28)
--- NOTE | 2023-02-23 11:45 | P.PCN ---
Date of Procedure: 02/23/23 Procedure(s) Performed: BRIEF HISTORY: Patient is a 77-year-old pleasant female scheduled for an elective colonoscopy as a part of evaluation of prior history of colon polyps. PROCEDURE PERFORMED: Colonoscopy with biopsy. PREOPERATIVE DIAGNOSIS: History of colon polyps. IV sedation per Anesthesia. PROCEDURE: After informed consent was obtained, the patient, was brought into the endoscopy unit. IV sedation was administered by Anesthesia under continuous monitoring. Digital rectal examination was normal. Initially the Olympus CF-160 flexible video colonoscope was then inserted in the rectum, gradually advanced into the cecum without any difficulty. Careful examination was performed as the scope was gradually being withdrawn. Ileocecal valve and the appendiceal orifice were visualized and appeared normal. Prep was excellent. Mucosa of the cecum appeared normal. In the ascending colon there was a diminutive polyp that was removed by cold biopsy. Rest of the, ascending colon, transverse colon, descending colon, sigmoid colon, and rectum appeared normal. Mid rectum there was a 2 mm polyp that was removed by cold biopsy. Retroflexion was performed in the rectum and no lesions were seen. The patient tolerated the procedure well. IMPRESSION: 4 mm ascending colon polyp status post cold biopsy 3 mm rectal polyp status post cold biopsy RECOMMENDATIONS: Findings of this examination were discussed with the patient as well as a family.. He was advised to follow with the biopsy results. Continue with to be a high-fiber diet and fiber supplements a regular basis.
[2023-02-23 12:16] VITALS: PULSE 60; RESP 14
[2023-02-23 12:35] VITALS: BP 134/78
== END 2023-02-23 12:38 | disposition home or self-care (01) ==
LOC: ORWHC2ENDO 09:00
PROVIDERS: ATTEND Internal Medicine Gastroenterology
DX: Z12.11 Encounter for screening for malignant neoplasm of colon (principal); D12.2 Benign neoplasm of ascending colon; K62.1 Rectal polyp; K21.9 Gastro-esophageal reflux disease without esophagitis; I10 Essential (primary) hypertension; E78.5 Hyperlipidemia, unspecified; F17.200 Nicotine dependence, unspecified, uncomplicated; Z88.2 Allergy status to sulfonamides; Z86.010 Personal history of colon polyps; Z79.899 Other long term (current) drug therapy
CPT/HCPCS: 88305; 45380; J2704